=== PATIENT | female | born 1975 | race African-American/Black ===

== ENCOUNTER 2016-07-09 20:34 | Emergency (ER) | payer MEDICAID ==
[~2016-07-09] VITALS: Ht 167.6 cm; Wt 74.8 kg
[2016-07-09 21:04] LABS: Basophils # (auto) 0.2 uL; Basophils % (auto) 1.9 % (0.0-2.0); Eosinophils # (auto) 0.2 uL; Eosinophils % (auto) 1.9 % (0.0-7.0); Hematocrit 39.4 % (36.0-46.0); Hemoglobin 13.1 g/dL (12.2-16.2); Lymphocytes # (auto) 3.6 uL; Lymphocytes % (auto) 36.7 % (10.0-50.0); Mean Corpuscular Hemoglobin 27.8 pg (28.0-32.0); Mean Corpuscular Hgb Conc. 33.2 g/dL (32.0-36.0); Mean Corpuscular Volume 83.6 fL (80.0-100.0); Mean Platelet Volume 8.6 fL (7.4-10.4); Monocytes # (auto) 0.2 uL; Monocytes % (auto) 2.3 % (0.0-12.0); Neutrophils # (auto) 5.6 uL; Neutrophils % (auto) 57.2 % (37.0-80.0); Platelet Count (auto) 347 10^3/uL (140-450); Red Cell Distribution Width 13.1 % (11.6-16.0); White Blood Cell 9.8 10^3/uL (4.4-10.8)
[2016-07-09 21:27] LABS: Albumin 3.3 g/dL (3.4-5.0); Alkaline Phosphatase 97 U/L (45-117); Anion Gap 11 (5-15); Aspartate Aminotransferase 8 U/L (15-37); BUN/Creatinine Ratio 8.5; Bilirubin, Total 0.3 mg/dL (0.2-1.0); Blood Urea Nitrogen 10 mg/dL (7-18); Calcium 8.6 mg/dL (8.5-10.1); Carbon Dioxide 24 mmol/L (21-32); Chloride 101 mmol/L (98-107); GFR African American 66 mL/min; GFR Non-African American 55 mL/min; Glucose 380 mg/dL (74-106); Magnesium 2.1 mg/dL (1.6-2.6); Potassium 3.8 mmol/L (3.5-5.1); Sodium 136 mmol/L (136-145); Total Protein 7.3 g/dL (6.4-8.2)
[2016-07-10] MEDS ORDERED: INSULIN 70/30 1unit/0.01ml Susp (100units/ml) SC ONE (06:15)
[2016-07-10 07:20] VITALS: BP 108/78
== END 2016-07-10 07:21 | disposition home or self-care (01) ==
LOC: ER 20:37
DX: J20.9 Acute bronchitis, unspecified (principal); J44.9 Chronic obstructive pulmonary disease, unspecified; J45.909 Unspecified asthma, uncomplicated; E11.22 Type 2 diabetes mellitus with diabetic chronic kidney disease; N18.9 Chronic kidney disease, unspecified; F17.210 Nicotine dependence, cigarettes, uncomplicated
CPT/HCPCS: 36415; 71020; 80053; 81025; 83735; 84484; 85025; 93005

== ENCOUNTER 2016-07-15 13:55 | Emergency (ER) | payer MEDICAID ==
[~2016-07-15] VITALS: Ht 165.1 cm; Wt 73.0 kg
[2016-07-15 14:45] LABS: Basophils # (auto) 0.1 uL; Basophils % (auto) 0.8 % (0.0-2.0); Eosinophils # (auto) 0.2 uL; Eosinophils % (auto) 1.7 % (0.0-7.0); Hemoglobin 14.1 g/dL (12.2-16.2); Lymphocytes # (auto) 2.9 uL; Lymphocytes % (auto) 28.1 % (10.0-50.0); Mean Corpuscular Hemoglobin 27.7 pg (28.0-32.0); Mean Corpuscular Hgb Conc. 32.9 g/dL (32.0-36.0); Mean Platelet Volume 8.9 fL (7.4-10.4); Monocytes # (auto) 0.5 uL; Monocytes % (auto) 4.8 % (0.0-12.0); Neutrophils # (auto) 6.7 uL; Neutrophils % (auto) 64.6 % (37.0-80.0); Platelet Count (auto) 360 10^3/uL (140-450); Red Cell Distribution Width 13.3 % (11.6-16.0); White Blood Cell 10.3 10^3/uL (4.4-10.8)
[2016-07-15 15:11] LABS: Albumin 3.5 g/dL (3.4-5.0); Alkaline Phosphatase 94 U/L (45-117); Anion Gap 11 (5-15); Aspartate Aminotransferase 8 U/L (15-37); BUN/Creatinine Ratio 9.4; Bilirubin, Total 0.6 mg/dL (0.2-1.0); Blood Urea Nitrogen 10 mg/dL (7-18); Calcium 8.8 mg/dL (8.5-10.1); Carbon Dioxide 24 mmol/L (21-32); Chloride 102 mmol/L (98-107); GFR African American 74 mL/min; GFR Non-African American 61 mL/min; Glucose 385 mg/dL (74-106); Potassium 4.4 mmol/L (3.5-5.1); Sodium 137 mmol/L (136-145); Total Protein 7.7 g/dL (6.4-8.2)
[2016-07-15 15:16] LABS: Urine Bilirubin Negative (Negative); Urine Blood Negative /uL (Negative); Urine Color Yellow (Yellow); Urine Mucus FEW (None Seen); Urine Nitrite Negative (Negative); Urine RBC 2 /hpf (0 - 4); Urine Squamous Epithelial Cell FEW /hpf (<5); Urine Urobilinogen Normal (Negative)
[2016-07-15 15:19] LABS: Urine Glucose 4+ mg/dL (Normal); Urine Ketone 1+ (Negative)
[2016-07-15] MEDS ORDERED: cefTRIAXone 1GM/50ML D5W 50 ML IV ONE (19:15)
[2016-07-15] MEDS ORDERED: InsuLIN REG 1unit/0.01ml Soln (100units/ml) SC ONE (21:00)
[2016-07-15] MEDS ORDERED: SODIUM CHLORIDE 0.9% 1,000 ML IV ONE (21:00)
[2016-07-15] MEDS ORDERED: ONDANSETRON HCL 4 MG/2 ML VIAL ONE (21:30)
[2016-07-15 23:00] VITALS: BP 123/88
[2016-07-15] MEDS ORDERED: ONDANSETRON HCL 4 MG/2 ML VIAL IV ONE (23:00)
== END 2016-07-16 02:19 | disposition home or self-care (01) ==
LOC: ER 13:55
DX: E11.65 Type 2 diabetes mellitus with hyperglycemia (principal); N39.0 Urinary tract infection, site not specified; F17.210 Nicotine dependence, cigarettes, uncomplicated; E11.22 Type 2 diabetes mellitus with diabetic chronic kidney disease; N18.9 Chronic kidney disease, unspecified; J45.909 Unspecified asthma, uncomplicated
CPT/HCPCS: 36415; 71010; 80053; 81001; 81025; 82962; 83735; 84484; 85025; 85379; 93005; 96365; 96372; 96375; 99285; J0696; J1815; J2405

== ENCOUNTER 2016-08-02 17:25 | Observation (INO) | payer MEDICAID ==
[~2016-08-02] VITALS: Ht 165.1 cm; Wt 71.2 kg
[2016-08-02 19:11] LABS: Albumin 3.3 g/dL (3.4-5.0); Calcium 8.1 mg/dL (8.5-10.1); Potassium 3.9 mmol/L (3.5-5.1)
[2016-08-02 19:13] LABS: BUN/Creatinine Ratio 10.8
[2016-08-02 19:16] LABS: Bilirubin, Total 0.2 mg/dL (0.2-1.0)
[2016-08-02 19:30] LABS: Basophils # (auto) 0.1 uL; Basophils % (auto) 1.1 % (0.0-2.0); Eosinophils # (auto) 0.2 uL; Hematocrit 39.9 % (36.0-46.0); Hemoglobin 13.2 g/dL (12.2-16.2); Lymphocytes # (auto) 3.2 uL; Lymphocytes % (auto) 36.8 % (10.0-50.0); Mean Corpuscular Hemoglobin 27.6 pg (28.0-32.0); Mean Corpuscular Volume 83.7 fL (80.0-100.0); Mean Platelet Volume 9.3 fL (7.4-10.4); Monocytes # (auto) 0.8 uL; Monocytes % (auto) 8.6 % (0.0-12.0); Neutrophils # (auto) 4.5 uL; Neutrophils % (auto) 51.5 % (37.0-80.0); Platelet Count (auto) 372 10^3/uL (140-450); Red Cell Distribution Width 13.3 % (11.6-16.0); White Blood Cell 8.8 10^3/uL (4.4-10.8)
[2016-08-03 02:51] VITALS: BP 118/82
== END 2016-08-03 06:14 | disposition home or self-care (01) | DRG 111 ==
LOC: ER 17:31 → OVERFLOW 08-03 02:53 → ER 08-03 06:14
PROVIDERS: ADMIT Emergency Medicine; ATTEND Emergency Medicine
DX: R42 Dizziness and giddiness (principal); N19 Unspecified kidney failure; F32.9 Major depressive disorder, single episode, unspecified; F41.9 Anxiety disorder, unspecified; J45.909 Unspecified asthma, uncomplicated; E11.9 Type 2 diabetes mellitus without complications; F17.210 Nicotine dependence, cigarettes, uncomplicated
CPT/HCPCS: 36415; 80053; 82010; 82962; 84484; 85025; 93005; 99285; G0378

== ENCOUNTER 2016-10-04 20:50 | Emergency (ER) | payer MEDICAID ==
[~2016-10-04] VITALS: Ht 162.6 cm; Wt 72.6 kg
[2016-10-04 21:22] VITALS: BP 137/91
[2016-10-04] MEDS ORDERED: IBUPROFEN 600 MG TAB PO ONE (21:45)
== END 2016-10-04 22:12 | disposition home or self-care (01) ==
LOC: ER 20:57
DX: S00.83XA Contusion of other part of head, initial encounter (principal); J45.909 Unspecified asthma, uncomplicated; E11.22 Type 2 diabetes mellitus with diabetic chronic kidney disease; N18.9 Chronic kidney disease, unspecified; F17.210 Nicotine dependence, cigarettes, uncomplicated; Z98.51 Tubal ligation status; Y09 Assault by unspecified means; Y93.89 Activity, other specified; Y99.8 Other external cause status; Y92.89 Other specified places as the place of occurrence of the external cause
CPT/HCPCS: 82962

== ENCOUNTER 2016-10-05 02:54 | Emergency (ER) | payer MEDICAID ==
[~2016-10-05] VITALS: Ht 167.6 cm; Wt 68.0 kg
[2016-10-05 04:02] LABS: Basophils # (auto) 0.1 uL; Eosinophils # (auto) 0.2 uL; Eosinophils % (auto) 1.9 % (0.0-7.0); Hematocrit 37.5 % (36.0-46.0); Hemoglobin 12.6 g/dL (12.2-16.2); Lymphocytes # (auto) 4.5 uL; Lymphocytes % (auto) 37.4 % (10.0-50.0); Mean Corpuscular Hemoglobin 28.3 pg (28.0-32.0); Mean Corpuscular Hgb Conc. 33.5 g/dL (32.0-36.0); Mean Corpuscular Volume 84.4 fL (80.0-100.0); Mean Platelet Volume 9.1 fL (7.4-10.4); Monocytes # (auto) 1.1 uL; Monocytes % (auto) 8.7 % (0.0-12.0); Neutrophils # (auto) 6.2 uL; Platelet Count (auto) 378 10^3/uL (140-450); Red Cell Distribution Width 13.5 % (11.6-16.0); White Blood Cell 12.1 10^3/uL (4.4-10.8)
[2016-10-05 04:17] LABS: Albumin 3.1 g/dL (3.4-5.0); BUN/Creatinine Ratio 15.7; Calcium 8.6 mg/dL (8.5-10.1); Potassium 3.6 mmol/L (3.5-5.1)
[2016-10-05 04:19] LABS: Urine Bilirubin Negative (Negative); Urine Color Yellow (Yellow); Urine Ketone Negative (Negative); Urine Nitrite Negative (Negative); Urine RBC 866 /hpf (0 - 4); Urine Squamous Epithelial Cell FEW /hpf (<5); Urine Urobilinogen Normal (Negative); Urine pH 5.5 (5.0-8.0)
[2016-10-05 04:20] LABS: Bilirubin, Total 0.4 mg/dL (0.2-1.0); Total Protein 7.3 g/dL (6.4-8.2)
[2016-10-05 04:20] LABS: Urine Blood 3+ /uL (Negative); Urine Glucose 4+ mg/dL (Normal)
[2016-10-05] MEDS ORDERED: SODIUM CHLORIDE 0.9% 1,000 ML IV ONE (06:15)
[2016-10-05] MEDS ORDERED: InsuLIN REG 1unit/0.01ml Soln (100units/ml) IV ONE (06:15)
[2016-10-05 07:21] VITALS: BP 133/82
== END 2016-10-05 07:48 | disposition home or self-care (01) ==
LOC: ER 02:54
DX: S00.83XA Contusion of other part of head, initial encounter (principal); E11.65 Type 2 diabetes mellitus with hyperglycemia; N39.0 Urinary tract infection, site not specified; F17.210 Nicotine dependence, cigarettes, uncomplicated; F12.10 Cannabis abuse, uncomplicated; F15.10 Other stimulant abuse, uncomplicated; J45.909 Unspecified asthma, uncomplicated; N18.9 Chronic kidney disease, unspecified; X58.XXXA Exposure to other specified factors, initial encounter; Y93.89 Activity, other specified; Y99.8 Other external cause status; Y92.89 Other specified places as the place of occurrence of the external cause
CPT/HCPCS: 36415; 70140; 80053; 80307; 81001; 81025; 82962; 85025; 96361; 96374; 99285; J7030

== ENCOUNTER 2016-12-15 14:05 | Emergency (ER) | payer MEDICAID ==
[~2016-12-15] VITALS: Ht 165.1 cm; Wt 72.6 kg
[2016-12-15 15:09] LABS: Basophils # (auto) 0.1 uL; Basophils % (auto) 1.4 % (0.0-2.0); CONDITION Y; Eosinophils # (auto) 0.2 uL; Eosinophils % (auto) 2.3 % (0.0-7.0); Hematocrit 36.8 % (36.0-46.0); Hemoglobin 12.2 g/dL (12.2-16.2); Lymphocytes # (auto) 2.2 uL; Lymphocytes % (auto) 27.4 % (10.0-50.0); Mean Corpuscular Hemoglobin 27.8 pg (28.0-32.0); Mean Corpuscular Hgb Conc. 33.2 g/dL (32.0-36.0); Mean Corpuscular Volume 83.8 fL (80.0-100.0); Mean Platelet Volume 9.3 fL (7.4-10.4); Monocytes # (auto) 0.6 uL; Monocytes % (auto) 6.9 % (0.0-12.0); Platelet Count (auto) 320 10^3/uL (140-450); Red Cell Distribution Width 13.8 % (11.6-16.0); White Blood Cell 8.1 10^3/uL (4.4-10.8)
[2016-12-15 15:20] LABS: Albumin 3.2 g/dL (3.4-5.0); BUN/Creatinine Ratio 7.1; Bilirubin, Total 0.6 mg/dL (0.2-1.0); Calcium 8.5 mg/dL (8.5-10.1); Potassium 4.4 mmol/L (3.5-5.1); Total Protein 7.3 g/dL (6.4-8.2)
[2016-12-15] MEDS ORDERED: SODIUM CHLORIDE 0.9% 1,000 ML IV ONE ×2 (17:10)
[2016-12-15] MEDS ORDERED: InsuLIN REG 1unit/0.01ml Soln (100units/ml) IV ONE (17:15)
[2016-12-15 20:30] VITALS: BP 116/68
[2016-12-15 21:17] LABS: Urine Bilirubin Negative (Negative); Urine Blood Negative /uL (Negative); Urine Color Yellow (Yellow); Urine Glucose 4+ mg/dL (Normal); Urine Ketone Negative (Negative); Urine Nitrite Negative (Negative); Urine RBC 3 /hpf (0 - 4); Urine Squamous Epithelial Cell FEW /hpf (<5)
== END 2016-12-15 21:42 | disposition home or self-care (01) ==
LOC: ER 14:08
DX: N39.0 Urinary tract infection, site not specified (principal); E11.65 Type 2 diabetes mellitus with hyperglycemia; J45.909 Unspecified asthma, uncomplicated; N18.9 Chronic kidney disease, unspecified; E11.22 Type 2 diabetes mellitus with diabetic chronic kidney disease; H53.8 Other visual disturbances; H57.11 Ocular pain, right eye; R53.1 Weakness; Z98.51 Tubal ligation status; F17.210 Nicotine dependence, cigarettes, uncomplicated; F12.10 Cannabis abuse, uncomplicated; F15.10 Other stimulant abuse, uncomplicated
CPT/HCPCS: 36415; 80053; 81001; 81025; 82962; 85025; 96361; 96374; 99284; J1815; J7030

== ENCOUNTER 2016-12-17 00:23 | Emergency (ER) | payer MEDICAID ==
[~2016-12-17] VITALS: Ht 165.1 cm; Wt 72.6 kg
[2016-12-17 01:16] LABS: Urine Bilirubin Negative (Negative); Urine Blood 3+ /uL (Negative); Urine Color Yellow (Yellow); Urine Glucose 4+ mg/dL (Normal); Urine Ketone 1+ (Negative); Urine Mucus FEW (None Seen); Urine Nitrite Negative (Negative); Urine RBC 12 /hpf (0 - 4); Urine Squamous Epithelial Cell FEW /hpf (<5); Urine pH 5.5 (5.0-8.0)
[2016-12-17] MEDS ORDERED: SODIUM CHLORIDE 0.9% 1,000 ML IV ONE (01:30)
[2016-12-17 01:35] LABS: Basophils # (auto) 0.4 uL; Basophils % (auto) 4.3 % (0.0-2.0); DEFINITIVE SEE PRINTOUT; Eosinophils # (auto) 0.1 uL; Eosinophils % (auto) 1.6 % (0.0-7.0); Hematocrit 35.7 % (36.0-46.0); Hemoglobin 11.8 g/dL (12.2-16.2); Lymphocytes # (auto) 3.2 uL; Lymphocytes % (auto) 34.3 % (10.0-50.0); Mean Corpuscular Hemoglobin 27.6 pg (28.0-32.0); Mean Corpuscular Hgb Conc. 32.9 g/dL (32.0-36.0); Mean Corpuscular Volume 83.9 fL (80.0-100.0); Mean Platelet Volume 8.4 fL (7.4-10.4); Monocytes # (auto) 0.6 uL; Monocytes % (auto) 6.6 % (0.0-12.0); Neutrophils # (auto) 5.1 uL; Neutrophils % (auto) 53.2 % (37.0-80.0); Platelet Count (auto) 307 10^3/uL (140-450); Red Cell Distribution Width 12.7 % (11.6-16.0); SUSPECT SEE PRINTOUT; White Blood Cell 9.4 10^3/uL (4.4-10.8)
[2016-12-17 02:14] LABS: Albumin 3.3 g/dL (3.4-5.0); BUN/Creatinine Ratio 11.3; Calcium 8.3 mg/dL (8.5-10.1); Potassium 3.9 mmol/L (3.5-5.1)
[2016-12-17 02:17] LABS: Bilirubin, Total 0.3 mg/dL (0.2-1.0); Total Protein 7.5 g/dL (6.4-8.2)
[2016-12-17 05:35] VITALS: BP 112/67
== END 2016-12-17 05:46 | disposition home or self-care (01) ==
LOC: ER 00:25
DX: E11.65 Type 2 diabetes mellitus with hyperglycemia (principal); F15.10 Other stimulant abuse, uncomplicated; Z91.19 Patient's noncompliance with other medical treatment and regimen; J45.909 Unspecified asthma, uncomplicated; E11.22 Type 2 diabetes mellitus with diabetic chronic kidney disease; N18.9 Chronic kidney disease, unspecified; F17.210 Nicotine dependence, cigarettes, uncomplicated; F12.10 Cannabis abuse, uncomplicated; Z87.440 Personal history of urinary (tract) infections; Z98.51 Tubal ligation status
CPT/HCPCS: 36415; 80053; 80307; 81001; 82962; 85025; 94761; 99284; J7030

== ENCOUNTER 2016-12-27 01:06 | Emergency (ER) | payer MEDICAID ==
[~2016-12-27] VITALS: Ht 165.1 cm; Wt 72.6 kg
[2016-12-27 01:43] VITALS: BP 121/77
[2016-12-27 02:12] LABS: Basophils # (auto) 0.1 uL; Basophils % (auto) 0.8 % (0.0-2.0); CONDITION Y; Eosinophils # (auto) 0.3 uL; Eosinophils % (auto) 2.5 % (0.0-7.0); Hematocrit 41.6 % (36.0-46.0); Hemoglobin 13.4 g/dL (12.2-16.2); Lymphocytes # (auto) 4.5 uL; Lymphocytes % (auto) 41.8 % (10.0-50.0); Mean Corpuscular Hemoglobin 27.2 pg (28.0-32.0); Mean Corpuscular Hgb Conc. 32.3 g/dL (32.0-36.0); Mean Corpuscular Volume 84.3 fL (80.0-100.0); Mean Platelet Volume 8.6 fL (7.4-10.4); Neutrophils # (auto) 4.9 uL; Neutrophils % (auto) 45.9 % (37.0-80.0); Platelet Count (auto) 415 10^3/uL (140-450); Red Cell Distribution Width 13.9 % (11.6-16.0); White Blood Cell 10.7 10^3/uL (4.4-10.8)
[2016-12-27 02:33] LABS: Albumin 3.6 g/dL (3.4-5.0); Calcium 8.6 mg/dL (8.5-10.1)
[2016-12-27 02:36] LABS: Bilirubin, Total 0.4 mg/dL (0.2-1.0); Total Protein 8.1 g/dL (6.4-8.2)
== END 2016-12-27 07:22 | disposition left against medical advice (07) ==
LOC: ER 01:10
DX: R73.9 Hyperglycemia, unspecified (principal); Z53.21 Procedure and treatment not carried out due to patient leaving prior to being seen by health care provider
CPT/HCPCS: 36415; 80053; 85025

== ENCOUNTER 2017-01-11 02:33 | Emergency (ER) | payer MEDICAID ==
[~2017-01-11] VITALS: Ht 165.1 cm; Wt 74.8 kg
[2017-01-11 03:50] LABS: Basophils # (auto) 0 uL; Basophils % (auto) 0.3 % (0.0-2.0); CONDITION Y; Eosinophils # (auto) 0.3 uL; Eosinophils % (auto) 2.7 % (0.0-7.0); Hemoglobin 13.1 g/dL (12.2-16.2); Lymphocytes # (auto) 4.7 uL; Lymphocytes % (auto) 39.8 % (10.0-50.0); Mean Corpuscular Hemoglobin 27.6 pg (28.0-32.0); Mean Corpuscular Hgb Conc. 32.7 g/dL (32.0-36.0); Mean Corpuscular Volume 84.4 fL (80.0-100.0); Monocytes # (auto) 0.8 uL; Neutrophils # (auto) 5.9 uL; Neutrophils % (auto) 50.2 % (37.0-80.0); Platelet Count (auto) 358 10^3/uL (140-450); Red Cell Distribution Width 14.1 % (11.6-16.0); White Blood Cell 11.8 10^3/uL (4.4-10.8)
[2017-01-11 04:04] LABS: INR 0.93 (0.9-1.15); Partial Thromboplastin Time 23.2 sec (22.64-33.71); Prothrombin Time 10.1 sec (9.37-12.3)
[2017-01-11 04:22] LABS: Albumin 3.4 g/dL (3.4-5.0); Alkaline Phosphatase 100 U/L (45-117); Anion Gap 10 (5-15); Aspartate Aminotransferase 6 U/L (15-37); Bilirubin, Total 0.3 mg/dL (0.2-1.0); Blood Urea Nitrogen 7 mg/dL (7-18); Calcium 8.8 mg/dL (8.5-10.1); Carbon Dioxide 22 mmol/L (21-32); Chloride 104 mmol/L (98-107); GFR African American 92 mL/min; GFR Non-African American 76 mL/min; Glucose 335 mg/dL (74-106); Magnesium 2.2 mg/dL (1.6-2.6); Sodium 136 mmol/L (136-145); Total Protein 7.8 g/dL (6.4-8.2)
[2017-01-11] MEDS ORDERED: metFORMIN HYDROCHLORIDE 500 MG TAB PO ONE (07:30)
[2017-01-11 07:38] VITALS: BP 101/73
== END 2017-01-11 08:05 | disposition home or self-care (01) ==
LOC: ER 02:33
DX: E11.22 Type 2 diabetes mellitus with diabetic chronic kidney disease (principal); N18.9 Chronic kidney disease, unspecified; E11.65 Type 2 diabetes mellitus with hyperglycemia; J45.909 Unspecified asthma, uncomplicated; F17.210 Nicotine dependence, cigarettes, uncomplicated; F12.10 Cannabis abuse, uncomplicated; F15.10 Other stimulant abuse, uncomplicated; Z79.4 Long term (current) use of insulin; Z98.51 Tubal ligation status
CPT/HCPCS: 36415; 80053; 82962; 83735; 84484; 85025; 85610; 85730

== ENCOUNTER 2021-06-23 18:39 | Emergency (ER) | payer MEDICAID ==
[~2021-06-23] VITALS: Ht 162.6 cm; Wt 66.7 kg
[2021-06-23] MEDS ORDERED: KETOROLAC TROMETH 30 MG/ML 1ML VIAL IM ONE (19:45)
[2021-06-25] MEDS ORDERED: IBUPROFEN 800 MG TAB PO ONE (19:30)
[2021-06-27 06:16] VITALS: BP 135/78
== END 2021-06-23 23:44 | disposition home or self-care (01) ==
LOC: ER 18:41
DX: S96.912A Strain of unspecified muscle and tendon at ankle and foot level, left foot, initial encounter (principal); X58.XXXA Exposure to other specified factors, initial encounter; Y93.01 Activity, walking, marching and hiking; Y92.89 Other specified places as the place of occurrence of the external cause; Y99.8 Other external cause status
CPT/HCPCS: 73610; 96372; 99283; J1885

== ENCOUNTER 2021-06-27 09:13 | Emergency (ER) | payer MEDICAID ==
[~2021-06-27] VITALS: Ht 162.6 cm; Wt 68.0 kg
[2021-06-27 10:34] LABS: Basophils # (auto) 0.1 10 ^3/uL (0-0.2); Eosinophils # (auto) 0.1 10 ^3/uL (0-0.8); Eosinophils % (auto) 0.6 % (0.0-7.0); Monocytes % (auto) 9.4 % (0.0-12.0); Nucleated Red Blood Cells % 0.1 %
[2021-06-27 10:37] LABS: Basophils % (auto) 1.2 % (0.0-2.0); Hematocrit 32.1 % (36.0-46.0); Lymphocytes # (auto) 2.1 10 ^3/uL (0.4-5.4); Mean Corpuscular Hemoglobin 26.7 pg (28.0-32.0); Mean Corpuscular Hgb Conc. 31.2 g/dL (32.0-36.0); Mean Corpuscular Volume 85.6 fL (80.0-100.0); Neutrophils # (auto) 6.9 10 ^3/uL (1.6-8.6); Neutrophils % (auto) 67.8 % (37.0-80.0); Red Blood Cells 3.75 10^6/uL (4.0-5.20); Red Cell Distribution Width 14.8 % (11.8-14.3); White Blood Cell 10.2 10^3/uL (4.4-10.8)
[2021-06-27 10:44] LABS: Potassium 3.8 mmol/L (3.5-5.1)
[2021-06-27 10:53] LABS: Albumin 2.5 g/dL (3.4-5.0); BUN/Creatinine Ratio 10.7; Bilirubin, Total 0.2 mg/dL (0.2-1.0); Calcium 8.4 mg/dL (8.5-10.1); Total Protein 7.4 g/dL (6.4-8.2)
[2021-06-27] MEDS ORDERED: SODIUM CHLORIDE 0.9% 1,000 ML IV ONE ×2 (11:45)
[2021-06-27] MEDS ORDERED: InsuLIN REG 1unit/0.01ml Soln (100units/ml) IV ONE (11:45)
[2021-06-27] MEDS ORDERED: cefTRIAXone 1GM/50ML D5W 50 ML IV ONE (11:45)
[2021-06-27] MEDS ORDERED: TEMAZEPAM 15 MG CAP PO PRN (21:15)
[2021-06-27] MEDS ORDERED: cloNIDine HCL 0.1 MG TAB PO PRN (21:15)
[2021-06-27] MEDS ORDERED: SODIUM CHLORIDE 0.9% 1,000 ML IV SCH (21:15)
[2021-06-27] MEDS ORDERED: DEXTROSE (50%) 50ML SYRG IV PRN (21:15)
[2021-06-27] MEDS ORDERED: ACETAMINOPHEN 325 MG TAB PO PRN (21:15)
[2021-06-27] MEDS ORDERED: HYDROcodone-ACET 5/325MG TAB PO PRN (21:15)
[2021-06-27] MEDS ORDERED: ONDANSETRON HCL 4 MG/2 ML VIAL IV PRN (21:15)
[2021-06-27] MEDS: InsuLIN REG 1unit/0.01ml Soln (100units/ml) SC SCH ×2 (21:50→23:54)
[2021-06-27 23:10] LABS: Urine Bacteria NONE SEEN /hpf (None Seen); Urine Blood Negative /uL (Negative); Urine Specific Gravity 1.024 (1.001-1.035); Urine WBC 7 /hpf (0 - 5)
[2021-06-28] MEDS ORDERED: ACCU-CHEK COMFORT CURVE STRIP VI SCH
[2021-06-28 02:40] VITALS: BP 105/63
[2021-06-28] MEDS ORDERED: cefTRIAXone 1GM/50ML D5W 50 ML IV SCH (09:00)
[2021-06-28] MEDS ORDERED: PANTOPRAZOLE 40 MG TAB PO SCH (10:00)
[2021-06-28] MEDS ORDERED: ENOXAPARIN SOD 40 MG/0.4 ML SYRINGE SC SCH (10:00)
== END 2021-06-28 02:36 | disposition short-term general hospital (02) ==
LOC: ER 09:13 → CENTRAL 21:08 → UNDOADMIN 21:08 → CENTRAL 06-28 01:42 → OVERFLOW 06-28 01:42 → UNDODISIN 06-28 02:36
DX: L03.116 Cellulitis of left lower limb (principal); E11.22 Type 2 diabetes mellitus with diabetic chronic kidney disease; E11.65 Type 2 diabetes mellitus with hyperglycemia; F17.210 Nicotine dependence, cigarettes, uncomplicated; N18.9 Chronic kidney disease, unspecified; J45.909 Unspecified asthma, uncomplicated; F12.10 Cannabis abuse, uncomplicated; F15.10 Other stimulant abuse, uncomplicated; Z59.00 Homelessness unspecified; Z20.822 Contact with and (suspected) exposure to COVID-19; Z98.51 Tubal ligation status
CPT/HCPCS: 36415; 71045; 73700; 80053; 81001; 82962; 83036; 83605; 84484; 85025; 87040; 87426; 96361; 96365; 96372; 96375; 99285; J0696; J1815; G0378

== ENCOUNTER 2023-03-29 02:32 | Emergency (ER) | payer MEDICAID ==
[~2023-03-29] VITALS: Ht 165.1 cm; Wt 94.4 kg
[2023-03-29 05:26] LABS: Alanine Aminotransferase 11 U/L (7-40); Albumin 3.9 g/dL (3.2-4.8); Alkaline Phosphatase 109 U/L (46-116); Aspartate Aminotransferase 10 U/L (13-40); BUN/Creatinine Ratio 16.3 (10.0-20.0); Blood Alcohol 4.7 mg/dL (<10); Blood Urea Nitrogen 17 mg/dL (9-23); Calcium 9.1 mg/dL (8.7-10.4); Chloride 101 mmol/L (98-107); Glucose 392 mg/dL (74-106); Lipase 51 U/L (12-53); Magnesium 1.7 mg/dL (1.6-2.6); Potassium 3.9 mmol/L (3.5-5.1); Sodium 132 mmol/L (136-145)
[2023-03-29 05:27] LABS: Bilirubin, Total 0.3 mg/dL (0.2-1.0); Total Protein 6.9 g/dL (5.7-8.2)
[2023-03-29 05:48] LABS: Anion Gap 12 (5-15); Carbon Dioxide 19 mmol/L (20-30)
[2023-03-29] MEDS ORDERED: InsuLIN REG 1unit/0.01ml Soln (100units/ml) IV ONE (06:45)
[2023-03-29] MEDS ORDERED: LACTATED RINGER'S 1,000 ML IV ONE (06:45)
[2023-03-29 07:56] VITALS: BP 137/86; PULSE 91; RESP 20; TEMP 98.2; O2SAT 99
[2023-03-29 07:56] LABS: Basophils # (auto) 0.1 10 ^3/uL (0-0.2); Basophils % (auto) 0.7 % (0.0-2.0); Eosinophils # (auto) 0.1 10 ^3/uL (0-0.8); Eosinophils % (auto) 1.1 % (0.0-7.0); Hematocrit 41.3 % (36.0-46.0); Hemoglobin 13.5 g/dL (12.2-16.2); Lymphocytes # (auto) 3.7 10 ^3/uL (0.4-5.4); Lymphocytes % (auto) 38.8 % (10.0-50.0); Mean Corpuscular Hemoglobin 28.2 pg (28.0-32.0); Mean Corpuscular Hgb Conc. 32.7 g/dL (32.0-36.0); Monocytes # (auto) 0.8 10 ^3/uL (0-1.3); Monocytes % (auto) 8.6 % (0.0-12.0); Neutrophils # (auto) 4.9 10 ^3/uL (1.6-8.6); Neutrophils % (auto) 50.8 % (37.0-80.0); Nucleated Red Blood Cells % 0.2 %; Red Blood Cells 4.81 10^6/uL (4.0-5.20); Red Cell Distribution Width 14.4 % (11.8-14.3); White Blood Cell 9.6 10^3/uL (4.4-10.8)
[2023-03-30] MEDS ORDERED: PHEN-922 PO (00:43)
[2023-03-30] MEDS ORDERED: NITR-87 PO (00:43)
== END 2023-03-29 10:30 | disposition home or self-care (01) ==
LOC: ER 02:32 → EDBD 02:32 → ER 10:30
DX: E11.65 Type 2 diabetes mellitus with hyperglycemia (principal); E86.0 Dehydration; F17.210 Nicotine dependence, cigarettes, uncomplicated; F12.10 Cannabis abuse, uncomplicated; Z59.00 Homelessness unspecified
CPT/HCPCS: 36415; 71045; 80053; 80320; 82010; 82962; 83690; 83735; 83930; 84484; 85025; 96361; 96374; 99284; J1815

== ENCOUNTER 2023-03-29 19:57 | Emergency (ER) | payer MEDICAID ==
[~2023-03-29] VITALS: Ht 165.1 cm; Wt 94.0 kg
[2023-03-30 00:30] LABS: Urine Bacteria MANY /hpf (None Seen); Urine Blood 2+ /uL (Negative); Urine Clarity Clear (Clear); Urine Color Colorless (Yellow); Urine Protein, UAD Negative (Negative); Urine Specific Gravity 1.031 (1.001-1.035); Urine Urobilinogen Normal (Negative); Urine WBC 19 /hpf (0 - 5); Urine WBC Clumps PRESENT /hpf (None Seen)
[2023-03-30] MEDS ORDERED: PHEN-922 PO (00:43)
[2023-03-30] MEDS ORDERED: NITR-87 PO (00:43)
[2023-03-30 05:55] VITALS: BP 115/70; PULSE 85; RESP 18; TEMP 98.8; O2SAT 98
== END 2023-03-30 05:57 | disposition home or self-care (01) ==
LOC: ER 19:57
DX: N39.0 Urinary tract infection, site not specified (principal); N39.498 Other specified urinary incontinence; E11.9 Type 2 diabetes mellitus without complications; F32.9 Major depressive disorder, single episode, unspecified; N18.9 Chronic kidney disease, unspecified; J45.909 Unspecified asthma, uncomplicated; F17.210 Nicotine dependence, cigarettes, uncomplicated; F15.90 Other stimulant use, unspecified, uncomplicated; Z86.2 Personal history of diseases of the blood and blood-forming organs and certain disorders involving the immune mechanism; Z98.890 Other specified postprocedural states
CPT/HCPCS: 81001; 81025

== ENCOUNTER 2024-11-17 14:31 | Inpatient (IN) | payer MEDICAID ==
[~2024-11-17] VITALS: Ht 165.1 cm; Wt 82.1 kg
[~2024-11-17 14:31] MED LIST: NITR-87 PO; PHEN-922 PO
--- NOTE | 2024-11-17 16:18 | ED.PDOC ---
History of Present Illness HPI Comments 48-year-old female presents to the ER with a prior medical history of anemia, asthma, diabetes, CKF, UTI, depression: Surgical history BTL and a chief complaint lower extremity. Patient does have peripheral neuropathy and has been walking a lot for which she has had ulcers on both of her feet. Patient went to [facility] in her with the addressed in debrided the wound last week. Patient notes that she does not check her blood sugar and has a polyuria. Denies chills, fever, N/V/D, SOB, CP. No other associated symptoms, modifiers, recent injuries or sick contacts present at this time. Chief Complaint: Wound Check Time Seen by MD: 16:15 Primary Care Provider: NONE Reviewed Notes: Nurses Notes, Medications, Allergies Allergies: Coded Allergies: NO KNOWN ALLERGIES (Unverified , 06/26/12) Home Meds Active Scripts Phenazopyridine HCl (Phenazopyridine Hydrochlo) 200 Mg Tab, 1 TAB PO TID for 3 Days, #9 TAB Prov:JUANITA SALAZAR Q TOOTH CLERK 03/30/23 Nitrofurantoin Monohydrate Mac (Macrobid) 100 Mg Cap, 1 TAB PO BID for 10 Days, #20 CAP Prov:SALAZAR,NORALDA Q TOOTH CLERK 03/30/23 Information Source: Patient Mode of Arrival: Ambulatory Severity: Moderate Timing: Weeks Duration: Since onset Prehospital treatment: None Past Medical History PAST MEDICAL HISTORY: Anemia, Asthma, CKF, Depression, DM, UTI'S Surgical History: BTL HOTEL DIRECTOR History: Denies all HOTEL DIRECTOR Hx Family History Family History: Reviewed,noncontributory to illness, Unknown Social History Smoker: Unknown Alcohol: Unknown Drugs: Unknown Lives In: Homeless Constitutional: denies: chills, diaphoresis, fatigue, fever, malaise, sweats, weakness, others EENTM: denies: blurred vision, double vision, ear bleeding, ear discharge, ear drainage, ear pain, ear ringing, eye pain, eye redness, hearing loss, mouth pain, mouth swelling, nasal discharge, nose bleeding, nose congestion, nose pain, photophobia, tearing, throat pain, throat swelling, voice changes, others Respiratory: denies: cough, hemoptysis, orthopnea, SOB at rest, shortness of breath, SOB with excertion, stridor, wheezing, others Cardiovascular: denies: chest pain, dizzy spells, diaphoresis, Dyspnea on exertion, edema, irregular heart beat, left arm pain, lightheadedness, palpitations, PND, syncope, others Gastrointestinal: denies: abdomen distended, abdominal pain, blood streaked bowels, constipated, diarrhea, dysphagia, difficulty swallowing, hematemesis, melena, nausea, poor appetite, poor fluid intake, rectal bleeding, rectal pain, vomiting, others Genitourinary: denies: abnormal vagina bleeding, burning, dyspareunia, dysuria, flank pain, frequency, hematuria, incontinence, pain, , vagina discharge, urgency, others Neurological: denies: dizziness, fainting, headache, left sided numbness, left sided weakness, numbness, paresthesia, pre-existing deficit, right sided numbness, right sided weakness, seizure, speech problems, tingling, tremors, weakness, others Musculoskeletal: denies: back pain, gout, joint pain, joint swelling, muscle pain, muscle stiffness, neck pain, others Integumetry: reports: others (Diabetic ulcer); denies: bruises, change in color, change in hair/nails, dryness, laceration, lesions, lumps, rash, wounds Allergic/Immunocompromised: denies: Difficulty Healing, Frequent Infections, Hives, Itching, others Hematologic/Lymphatic: denies: anemia, blood clots, easy bleeding, easy bruising, swollen glands, others Endocrine: denies: excessive hunger, excessive sweating, excessive thirst, excessive urination, flushing, intolerance to cold, intolerance to heat, unexplained weight gain, unexplained weight loss, others Psychiatric: denies: anxiety, bipolar disorder, depression, hopeless, panic disorder, schizophrenia, sleepless, suicidal, others All Other Systems: Reviewed and Negative Physical Exam Exam Comments Bilateral plantar full-thickness medical ulcer with no redness/pus General Appearance: No Apparent Distress, Normal HEENT: Normal ENT Inspection, Pharynx Normal, TMs Normal Neck: Full Range of Motion, Non-Tender, Normal, Normal Inspection Respiratory: Chest Non-Tender, Lungs Clear, No Accessory Muscle Use, No Respiratory Distress, Normal Breath Sounds Cardiovascular: No Edema, No JVD, No Murmur, No Gallop, Normal Peripheral Pulses, Regular Rate/Rhythm Breast Exam: Deferred Gastrointestinal: No Organomegaly, Non Tender, No Pulsatile Mass, Normal Bowel Sounds, Soft Genitalia: Deferred Pelvic: Deferred Rectal: Deferred Extremities: No calf tenderness, Normal capillary refill, Normal inspection, Normal range of motion, Non-tender, No pedal edema Musculoskeletal : Apperance: Normal Neurologic: Alert, supervisor title II-XII nml as Tested, No Motor Deficits, Normal Affect, Normal Mood, No Sensory Deficits Cerebellar Function: Normal Reflexes: Normal Skin: Dry, Normal Color, Warm Lymphatic: No Adenopathy Was a procedure done? Was a procedure done?: No Differential Dx Considerations may include: osteomyelitis, cellulitis, diabetic foot ulcers, necrotizing fasciitis, DKA, dehydration, sepsis X-Ray, Labs, Meds, VS Vital Signs Date Time Temp Pulse Resp B/P (MAP) Pulse Ox O2 Delivery O2 Flow Rate FiO2 11/17/24 16:16 98.0 95 16 99/62 (74) 100 98.0 Lab Test 11/17/24 16:28 11/17/24 16:03 Range/Units White Blood Count 9.0 4.4-10.8 10^3/uL Red Blood Count 3.74 L 4.0-5.20 10^6/uL Hemoglobin 10.4 L 12.2-16.2 g/dL Hematocrit 31.5 L 36.0-46.0 % Mean Corpuscular Volume 84.3 80.0-100.0 fL Mean Corpuscular Hemoglobin 27.9 L 28.0-32.0 pg Mean Corpuscular Hemoglobin Concent 33.1 32.0-36.0 g/dL Red Cell Distribution Width 13.2 11.8-14.3 % Platelet Count 646 H 140-450 10^3/uL Mean Platelet Volume 7.3 6.9-10.8 fL Neutrophils (%) (Auto) 58.7 37.0-80.0 % Lymphocytes (%) (Auto) 31.3 10.0-50.0 % Monocytes (%) (Auto) 7.6 0.0-12.0 % Eosinophils (%) (Auto) 1.6 0.0-7.0 % Basophils (%) (Auto) 0.8 0.0-2.0 % Neutrophils # (Auto) 5.3 1.6-8.6 10 ^3/uL Lymphocytes # (Auto) 2.8 0.4-5.4 10 ^3/uL Monocytes # (Auto) 0.7 0-1.3 10 ^3/uL Eosinophils # (Auto) 0.1 0-0.8 10 ^3/uL Basophils # (Auto) 0.1 0-0.2 10 ^3/uL Nucleated Red Blood Cells 0.1 % Sodium Level 132 L 136-145 mmol/L Potassium Level 4.7 3.5-5.1 mmol/L Chloride Level 97 L 98-107 mmol/L Carbon Dioxide Level 27 20-31 mmol/L Anion Gap 8 5-15 Blood Urea Nitrogen 26 H 9-23 mg/dL Creatinine 1.40 H 0.550-1.02 mg/dL Glomerular Filtration Rate Calc 47 >90 mL/min BUN/Creatinine Ratio 18.6 10.0-20.0 Serum Glucose 437 *H 74-106 mg/dL Calcium Level 9.8 8.7-10.4 mg/dL POC Glucose 409 *H 70-106 mg/dl Time of 1ST Reevaluation: 16:45 Reevaluation 1ST: Unchanged Patient Education/Counseling: Diagnosis, Treatment, Prognosis Family Education/Counseling: No Family Present SEPSIS Sepsis Screen Physician Orders Accucheck (11/17/24 17:00) Accucheck (11/17/24 18:00) Accucheck (11/17/24 19:00) Accucheck (11/17/24 20:00) Accucheck (11/17/24 21:00) Accucheck (11/17/24 22:00) Accucheck (11/17/24 23:00) R Foot 2 View Xray (11/17/24 16:08) L Foot 2 View Xray (11/17/24 16:08) Sodium Chloride 0.9% (11/17/24 16:15) Vital Signs Date Time Temp Pulse Resp B/P (MAP) Pulse Ox O2 Delivery O2 Flow Rate FiO2 11/17/24 16:16 98.0 95 16 99/62 (74) 100 98.0 Laboratory Tests Test 11/17/24 16:28 White Blood Count 9.0 10^3/uL (4.4-10.8) Departure 1 Departure Time of Disposition: 18:10 Impression: Primary Impression: Osteomyelitis Qualified Codes: M86.9 - Osteomyelitis, unspecified Additional Impressions: Uncontrolled diabetes mellitus Qualified Codes: E10.65 - Type 1 diabetes mellitus with hyperglycemia Anemia Qualified Codes: D64.9 - Anemia, unspecified Disposition: ADMITTED INPATIENT Admit to: Med Surg Condition: Serious Discharged With: Self Critical Care Note Critical Care Time?: Yes (45 min-critical care time only) Critical care comment: Due to concerns for patients condition deteriorating, the care required my highest level of attention and readiness to intervene. I assessed the patient, reviewed the medical records, ordered the appropriate tests and treatments, then reassessed for results and responsiveness. I communicated with medical personnel and consultants and formulated a plan of care. Total critical care time excludes any procedures Stability Stability form required: No I personally scribed for BRENNA DELAGDILLO MD ([email or web address]) on 11/17/24 at 16:18. Electronically submitted by Blaze Mckinnon ([email or web address]). BRENNA DELGADILLO MD Nov 17, 2024 16:18
--- NOTE | 2024-11-17 16:42 | DVH ---
Indication: r/o osteomyelitis Technique: 32views right foot Comparison: None FINDINGS/IMPRESSION: Erosive changes and destruction of the 4th metatarsal neck/ head, 5th metatarsal neck/ head and 5th p roximal phalanx base. There is extensive soft tissue ulceration and emphysema along the plantar aspec t of the foot at the level of the MTP joints with tiny radiopaque foci /calcification. Possible erosi ve changes and soft tissue emphysema of the 3rd metatarsal head. Dorsal right foot soft tissue edema. Constellation of findings are suggestive of osteomyelitis /infection. MRI right foot can be obtained to further evaluate. Inferior calcaneal spurring.
[2024-11-17 16:58] LABS: Potassium 4.7 mmol/L (3.5-5.1)
[2024-11-17 16:59] LABS: Anion Gap 8 (5-15); Calcium 9.8 mg/dL (8.7-10.4); Carbon Dioxide 27 mmol/L (20-31)
[2024-11-17 17:00] LABS: Chloride 97 mmol/L (98-107); Sodium 132 mmol/L (136-145)
[2024-11-17 17:04] LABS: BUN/Creatinine Ratio 18.6 (10.0-20.0)
[2024-11-17 17:15] LABS: Blood Urea Nitrogen 26 mg/dL (9-23)
[2024-11-17 17:19] LABS: Glucose 437 mg/dL (74-106)
[2024-11-17] MEDS: SODIUM CHLORIDE 0.9% 1,000 ML IV ONE (17:35)
[2024-11-17 17:42] LABS: Hematocrit 31.5 % (36.0-46.0); Hemoglobin 10.4 g/dL (12.2-16.2); Mean Corpuscular Hemoglobin 27.9 pg (28.0-32.0); Mean Corpuscular Volume 84.3 fL (80.0-100.0); Nucleated Red Blood Cells % 0.1 %
--- NOTE | 2024-11-17 18:07 | DVH ---
EXAM: XR Left Foot Complete, 3 or More Views CLINICAL INDICATION: r/o osteomyelitis TECHNIQUE: Frontal, lateral and oblique views of the left foot. COMPARISON: No relevant prior studies available. FINDINGS: BONES/JOINTS: No obvious radiographic evidence of osteomyelitis. However, if clinical suspicion rem ains high, further evaluation with 3 phase bone scan or MRI is recommended. No acute fracture. No d islocation. No erosive changes to the osseous structures. SOFT TISSUES: Soft tissue swelling. No radiopaque foreign body. OTHER FINDINGS: Comparison None. IMPRESSION: No obvious radiographic evidence of osteomyelitis. However, if clinical suspicion remains high, furt her evaluation with 3 phase bone scan or MRI is recommended. HS:Y
[2024-11-17] MEDS ORDERED: PIPERACILLIN-TAZOB 3.375GM 100 ML IV ONE (18:15)
[2024-11-17] MEDS ORDERED: VANCOMYCIN PER PHARMACY 0 MG IV SCH ×2 (18:15→19:30)
[2024-11-17] MEDS ORDERED: DEXTROSE (50%) 50ML SYRG IV PRN (19:30)
[2024-11-17] MEDS ORDERED: ACETAMINOPHEN 325 MG TAB PO PRN (19:30)
[2024-11-17] MEDS: InsuLIN REG 1unit/0.01ml Soln (100units/ml) IV ONE (20:26)
[2024-11-17] MEDS: InsuLIN REG 1unit/0.01ml Soln (100units/ml) SC SCH (20:37)
[2024-11-17] MEDS: VANCOMYCIN 1.25GM/250ML 250 ML IV ONE (20:41)
[2024-11-17] MEDS: ACCU-CHEK COMFORT CURVE STRIP VI SCH (20:42)
[2024-11-17] MEDS: PIPERACILLIN-TAZOB 3.375GM 100 ML IV SCH (20:42)
[2024-11-17 21:12] VITALS: PULSE 86; RESP 20; O2SAT 98
[2024-11-17] MEDS: HYDROcodone-ACET 5/325MG TAB PO PRN (21:37)
--- NOTE | 2024-11-17 21:43 | DVHHP2 ---
History of Present Illness Reason for Visit: Bilateral foot pain History of Present Illness 48-year-old female presents for evaluation of bilateral foot pain. Patient reports having bilateral foot debridement a week ago. She states having bilateral foot pain worse on the right foot. No fever or chills. 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 No other acute complaints reported. Past Medical History Chronic kidney disease, diabetes mellitus, depression, asthma, anemia Past Surgical History BTL, foot debridement. Family History Noncontributory Smoke: No ALCOHOL: none Drugs: None Lives: with Family Review of Systems Review of Systems Review of systems are currently negative otherwise addressed in HPI. Allergies: Coded Allergies: NO KNOWN ALLERGIES (Unverified , 06/26/12) Medications Current Medications Medications Dose Ordered Sig/Edmundo Route Start Time Stop Time Status Last Admin Dose Admin Vancomycin HCl 0 ml @ 0 mls/hr UD IV 11/17/24 18:15 Cancel Piperacillin Sod/ Tazobactam Sod 100 ml @ 25 mls/hr Q8HR IV 11/17/24 22:00 11/17/24 20:42 25 MLS/HR Vancomycin HCl 0 ml @ 0 mls/hr UD IV 11/17/24 19:30 Diagnostic Test (Pha) 1 strip IQ4HR 11/17/24 20:00 11/17/24 20:42 1 STRIP Insulin Human Regular IQ4HR SC 11/17/24 20:00 11/17/24 20:37 8 UNITS Dextrose 50 ml UD PRN IV 11/17/24 19:30 Acetaminophen/ Hydrocodone Bitart 1 tab Q4HP PRN PO 11/17/24 19:30 Ondansetron HCl 4 mg Q4HP PRN IV 11/17/24 19:30 Acetaminophen 650 mg Q6HP PRN PO 11/17/24 19:30 Exam Vital Signs Vital Signs Date Time Temp Pulse Resp B/P (MAP) Pulse Ox O2 Delivery O2 Flow Rate FiO2 11/17/24 21:12 98.1 89 19 140/80 (100) 95 98.1 11/17/24 21:12 Room Air* 0 21 Exam Gen: 48-year-old female in mild distress Skin: Warm, dry, normal color and texture, no rash. HEENT: Normocephalic atraumatic, mucous membranes moist and pink. Neck: Cervical and supraclavicular nodes normal without enlargement, trachea is midline, thyroid gland is normal without masses. Pulmonary: Clear to auscultation and percussion bilaterally. Cardiac: Regular rate and rhythm. No murmur Abdomen: Soft, nontender, nondistended, bowel sounds present all 4 quadrants, no guarding, no rigidity, no organomegaly. Extremities: No cyanosis, clubbing, bilateral foot wounds Neuro: Cranial nerves II through XII grossly intact, normal affect and speech, no focal motor deficits. Labs/Xrays ORDERING PHYSICIAN: BRENNA DELGADILLO MD PROCEDURE(s): RFOT2 - R FOOT 2 VIEW XRAY REASON: r/o osteomyelitis ORDER NUMBER(s): [id number], ACCESSION NUMBER(s): [id number] Indication: r/o osteomyelitis Technique: 32views right foot Comparison: None FINDINGS/IMPRESSION: Erosive changes and destruction of the 4th metatarsal neck/ head, 5th metatarsal neck/ head and 5th proximal phalanx base. There is extensive soft tissue ulceration and emphysema along the plantar aspect of the foot at the level of the MTP joints with tiny radiopaque foci /calcification. Possible erosive changes and soft tissue emphysema of the 3rd metatarsal head. Dorsal right foot soft tissue edema. Constellation of findings are suggestive of osteomyelitis /infection. MRI right foot can be obtained to further evaluate. Inferior calcaneal spurring. RING PHYSICIAN: BRENNA DELGADILLO MD PROCEDURE(s): LFOT2 - L FOOT 2 VIEW XRAY REASON: r/o osteomyelitis ORDER NUMBER(s): [id number], ACCESSION NUMBER(s): [id number] EXAM: XR Left Foot Complete, 3 or More Views CLINICAL INDICATION: r/o osteomyelitis TECHNIQUE: Frontal, lateral and oblique views of the left foot. COMPARISON: No relevant prior studies available. FINDINGS: BONES/JOINTS: No obvious radiographic evidence of osteomyelitis. However, if clinical suspicion remains high, further evaluation with 3 phase bone scan or MRI is recommended. No acute fracture. No dislocation. No erosive changes to the osseous structures. SOFT TISSUES: Soft tissue swelling. No radiopaque foreign body. OTHER FINDINGS: Comparison None. IMPRESSION: No obvious radiographic evidence of osteomyelitis. However, if clinical suspicion remains high, further evaluation with 3 phase bone scan or MRI is recommended. HS:Y Labs Test 11/17/24 20:33 11/17/24 16:28 Range/Units POC Glucose 332 H 70-106 mg/dl White Blood Count 9.0 4.4-10.8 10^3/uL Red Blood Count 3.74 L 4.0-5.20 10^6/uL Hemoglobin 10.4 L 12.2-16.2 g/dL Hematocrit 31.5 L 36.0-46.0 % Mean Corpuscular Volume 84.3 80.0-100.0 fL Mean Corpuscular Hemoglobin 27.9 L 28.0-32.0 pg Mean Corpuscular Hemoglobin Concent 33.1 32.0-36.0 g/dL Red Cell Distribution Width 13.2 11.8-14.3 % Platelet Count 646 H 140-450 10^3/uL Mean Platelet Volume 7.3 6.9-10.8 fL Neutrophils (%) (Auto) 58.7 37.0-80.0 % Lymphocytes (%) (Auto) 31.3 10.0-50.0 % Monocytes (%) (Auto) 7.6 0.0-12.0 % Eosinophils (%) (Auto) 1.6 0.0-7.0 % Basophils (%) (Auto) 0.8 0.0-2.0 % Neutrophils # (Auto) 5.3 1.6-8.6 10 ^3/uL Lymphocytes # (Auto) 2.8 0.4-5.4 10 ^3/uL Monocytes # (Auto) 0.7 0-1.3 10 ^3/uL Eosinophils # (Auto) 0.1 0-0.8 10 ^3/uL Basophils # (Auto) 0.1 0-0.2 10 ^3/uL Nucleated Red Blood Cells 0.1 % Sodium Level 132 L 136-145 mmol/L Potassium Level 4.7 3.5-5.1 mmol/L Chloride Level 97 L 98-107 mmol/L Carbon Dioxide Level 27 20-31 mmol/L Anion Gap 8 5-15 Blood Urea Nitrogen 26 H 9-23 mg/dL Creatinine 1.40 H 0.550-1.02 mg/dL Glomerular Filtration Rate Calc 47 >90 mL/min BUN/Creatinine Ratio 18.6 10.0-20.0 Serum Glucose 437 *H 74-106 mg/dL Calcium Level 9.8 8.7-10.4 mg/dL Assessment/Plan Assessment/Plan Assessment Foot osteomyelitis Uncontrolled diabetes mellitus Chronic kidney disease Plan Admit the patient to [facility] surge to the hospitalist Podiatry consult Zosyn/vancomycin Pain management Resume home medications Continue treatment per orders. Plan discussed with: Patient My Orders Orders - REA ABARCA Procedure Category Date Status Time Piperacillin-Tazob PHA 11/17/24 In Process 3.375gm (Zosyn 3.375g 22:00 Vancomycin Per PHA 11/17/24 In Process Pharmacy 19:30 *Podiatry Consult CONS 11/17/24 Transmitted Musson(Dvmg) 19:24 Consistent DIET 11/18/24 Transmitted Carb(Ccho)Diabetes Breakfast Wound Culture W/ Gs [place] 11/17/24 Logged 19:24 Wound Culture W/ Gs [place] 11/17/24 Logged 19:24 Basic Metabolic Panel LAB 11/18/24 Verified 04:00 Glucose Blood PHA 11/17/24 In Process (Accu-Chek Com[place] 20:00 Insulin R (Human) PHA 11/17/24 In Process (Insulin R) 20:00 Dextrose 50% Syringe PHA 11/17/24 In Process 19:30 Admit ADMIT 11/17/24 Transmitted 19:24 Hydrocodone-Acet PHA 11/17/24 In Process 5/325mg Tab ([place] 19:30 Ondansetron Hcl PHA 11/17/24 In Process (Zofran) 19:30 Condition: Fair [place] 11/17/24 In Process 19:24 Acetaminophen Tablet PHA 11/17/24 In Process (Tylenol Tablet) 19:30 Bedrest With Bathroom [place] 11/17/24 In Process Privileg 19:24 Date of Service: Nov 17, 2024 Billing Provider: REA ABARCA Common Visit Codes: [id number] INP/OBS CARE (HIGH) REA ABARCA Nov 17, 2024 21:43
[2024-11-18] VITALS (10 sets, daily range): BP systolic 98–138; BP diastolic 57–86; PULSE 68–92; RESP 16–18; TEMP 97–98.9; O2SAT 97–100
[2024-11-18 06:40] LABS: Chloride 104 mmol/L (98-107); Potassium 4.6 mmol/L (3.5-5.1); Sodium 136 mmol/L (136-145)
[2024-11-18 06:46] LABS: BUN/Creatinine Ratio 25.6 (10.0-20.0)
[2024-11-18 06:50] LABS: Blood Urea Nitrogen 30 mg/dL (9-23); Calcium 8.6 mg/dL (8.7-10.4); Glucose 200 mg/dL (74-106)
[2024-11-18 06:51] LABS: Nucleated Red Blood Cells % 0.1 %
[2024-11-18 06:53] LABS: Hematocrit 29.9 % (36.0-46.0); Hemoglobin 10.0 g/dL (12.2-16.2); Mean Corpuscular Hemoglobin 28.1 pg (28.0-32.0); Mean Corpuscular Volume 83.9 fL (80.0-100.0)
[2024-11-18 06:54] LABS: Anion Gap 8 (5-15); Carbon Dioxide 24 mmol/L (20-31)
[2024-11-18] MEDS: INSULIN LANTUS (GLARGINE) 1 /0.01ml (100units/ml) SC ONE (09:30)
--- NOTE | 2024-11-18 09:52 | DVH ---
CLINICAL INDICATION: r/o OM COMPARISON: Radiograph of the left foot dated 11/17/2024. TECHNIQUE: Multiplanar, multisequence MRI of the left foot was performed without intravenous contrast . Contrast: None. INTERPRETATION: Bones: No evidence of acute fracture. There is no marrow replacing lesion. Soft tissues: The Lisfranc ligament is intact. The medial and lateral collateral ligaments are intac t at the metatarsophalangeal joints. The flexor and extensor tendons are intact. There is no planta r plate tear. There is no soft tissue mass or fluid collection. Soft tissue swelling of the dorsal forefoot. There is edema within the intrinsic muscles of the foot. Heel spur noted. IMPRESSION: 1. No evidence of osteomyelitis in the left foot. 2. Subcutaneous edema, nonspecific but may reflect cellulitis in the appropriate clinical setting.
--- NOTE | 2024-11-18 10:23 | DVH ---
CLINICAL INDICATION: r/o OM COMPARISON: Radiographs of the right foot performed on 11/17/2024. TECHNIQUE: Multiplanar, multisequence MRI of the right foot was performed without intravenous contras t. Contrast: None. INTERPRETATION: Bones: T1 hypointensity in the 3rd metatarsal head and T1 hypointensity in the Entire visualized 3rd proximal and middle phalanx. There is corresponding edema in the bones, consistent with osteomyelitis . Chronic appearing deformities of the distal 4th and 5th metatarsal bones. Joints: There is 3rd metatarsophalangeal joint effusion. Hammertoe deformities noted. Soft tissues: Large skin defect and ulceration in the plantar surface of the surgical subcutaneous ed ean and emphysema noted. No retracted tendon or ligament injury. Edema in the intrinsic muscles of t he foot may reflect denervation edema or myositis. IMPRESSION: 1. Osteomyelitis in the 3rd metatarsal bone, and the 3rd proximal and middle phalanx. 2. Plantar ulceration and soft tissue defect deep to the 3rd toe with edema and emphysema suggesting soft tissue infection. 3. Edema in the intrinsic muscles of the foot may reflect denervation edema or myositis.
[2024-11-18] MEDS: ACCU-CHEK COMFORT CURVE STRIP VI SCH (11:52)
[2024-11-18] MEDS: INSULIN LANTUS (GLARGINE) 1 /0.01ml (100units/ml) SC SCH (11:54)
[2024-11-18] MEDS: INSULIN LISPRO (HUMAN) 100 UNITS/ML ML SC SCH ×2 (11:55→11:56)
[2024-11-18] MEDS: VANCOMYCIN 1GM/250ML KIT 250 ML IV SCH (14:07)
--- NOTE | 2024-11-18 14:48 | DVHPNRES ---
Progress Note Date Seen: Nov 18, 2024 Resident Creating Document: JUAN MYERS RESIDENT Has the PT tested + for MRSA If YES, has PT been informed?: No Medical Necessity Reason Pt with a Central, PICC or Fol: No Subjective Review of Systems Patient seen at bedside. Still reports pain on bilateral feet. MRI was done today which shows osteomyelitis on the right foot and cellulitis in the left foot. She Reports no fever, chills, chest pain, shortness of breath, nausea, vomiting. Her HbA1c is 14. This consulted with Podiatry and procedure will probably be done tomorrow. Patient is homeless and is awaiting for placement. Constitutional: Denies weight loss, fever and chills. HEENT: Denies changes in vision and hearing. Respiratory: Denies shortness of breath and cough Cardiovascular: Denies chest discomfort or palpitations GI: Mild abdominal distention, normal bowel sounds : Denies dysuria and urinary frequency. Musculoskeletal: Denies myalgias and joint pain Skin: Denies rash and pruritus. Neurological: Denies dizziness, headache, vision or hearing problems. decreased sensation in feet Objective vital signs Vital Sign Date Time Temp Pulse Resp B/P (MAP) Pulse Ox O2 Delivery O2 Flow Rate FiO2 11/18/24 13:00 97.6 79 18 138/86 (103) 97 97.6 11/18/24 08:32 Room Air* 0 21 Total Intake and Output 11/17/24 11/17/24 11/18/24 15:00 23:00 07:00 Intake Total 0 ml Balance 0 ml medications Current Medications Medications Dose Ordered Sig/Edmundo Route Start Time Stop Time Status Last Admin Dose Admin Vancomycin HCl 0 ml @ 0 mls/hr UD IV 11/17/24 18:15 Cancel Piperacillin Sod/ Tazobactam Sod 100 ml @ 25 mls/hr Q8HR IV 11/17/24 22:00 11/18/24 05:31 25 MLS/HR Vancomycin HCl 0 ml @ 0 mls/hr UD IV 11/17/24 19:30 Dextrose 50 ml UD PRN IV 11/17/24 19:30 Acetaminophen/ Hydrocodone Bitart 1 tab Q4HP PRN PO 11/17/24 19:30 11/17/24 22:45 1 TAB Ondansetron HCl 4 mg Q4HP PRN IV 11/17/24 19:30 Acetaminophen 650 mg Q6HP PRN PO 11/17/24 19:30 Insulin Human Lispro AC SC 11/18/24 11:30 11/18/24 11:55 2 UNITS Insulin Human Lispro 3 units AC SC 11/18/24 11:30 11/18/24 11:56 3 UNITS Insulin Glargine 10 units DAILY@1000 SC 11/18/24 10:00 11/18/24 11:54 10 UNITS Diagnostic Test (Pha) 1 strip ACHS 11/18/24 11:30 11/18/24 11:52 1 STRIP Vancomycin HCl 250 ml @ 200 mls/hr Q16H IV 11/18/24 12:00 11/18/24 14:07 200 MLS/HR Examination General: Patient alert and oriented in person, place and time. Patient following commands. HEENT: Normocephalic, atraumatic, moist mucous membranes Respiratory/pulmonary: Clear lungs bilaterally, vesicular murmurs present in almost all lung garcia, no associated crackles or wheezes. Cardiovascular: Normal heart sounds S1 and S2 with no associated murmurs Abdomen: Abdomen nondistended, there is no pain to palpation in any of the abdominal quadrants, no palpable masses. Extremities: There is no peripheral edema present at the lower extremities. both feet had surgical debridment. Peripheral Pulses: 3+ Radial (R). 3+ Radial (L). 3+ Dorsalis pedis (R). 3+ Dorsalis pedis(L) Skin: No rashes or pruritus, there is no sacral edema present at this time. Neurological: Intact cranial nerves with no focal neurologic deficits. decreased sensation feet. laboratory and microbiology Laboratory Tests 11/18/24 05:42 Test 11/18/24 05:42 Range/Units Serum Glucose 200 H 74-106 mg/dL Problem List/Assessment/Plan Problem List/Assessment/Plan Right Foot osteomyelitis plan: podiatry cosult Iv vancomycin IV zosyn Hydrocodone Left Foot cellulites: plan:continue IV antibiotics Uncontrolled diabetes mellitus plan : continue insulin sliding scale and Lantus educated diabetic diet Hba1c >14 Chronic Kidney disease plan: Avoid nephrotoxic medication monitor kidney function plan discussed with patient, and nurse case discussed with Dr. Rausch. Plan discussed with: Patient Date of Service: Nov 18, 2024 Billing Provider: WALESKA RAUSCH MD Common Visit Codes: [id number] INP/OBS CARE(HIGH) JUAN MYERS RESIDENT Nov 18, 2024 14:48 WALESKA RAUSCH MD Nov 18, 2024 21:17
[2024-11-18] MEDS ORDERED: INSULIN LANTUS (GLARGINE) 1 /0.01ml (100units/ml) SC SCH (22:00)
[2024-11-19] VITALS (8 sets, daily range): BP systolic 100–126; BP diastolic 62–83; PULSE 64–85; RESP 13–20; TEMP 97.4–98.7; O2SAT 96–100
[2024-11-19 01:40] LABS: Urine Protein, UAD TRACE (Negative)
[2024-11-19 02:13] LABS: Amphetamine Screen, Urine Neg (NEGATIVE); Barbiturate Scree,Urine Neg (NEGATIVE); Benzodiazephine Screen, Urine Neg (NEGATIVE); Cannabinoid Screen, Urine Neg (NEGATIVE); Cocaine Screen, Urine Neg (NEGATIVE); Opiate Scree,Urine Neg (NEGATIVE); Phencyclidine Screen, Urine Neg (NEGATIVE)
[2024-11-19] MEDS: VANCOMYCIN 1GM/200ML PM 200 ML IV ONE (03:33)
[2024-11-19 06:34] LABS: Hemoglobin 10.4 g/dL (12.2-16.2); Mean Corpuscular Volume 84.3 fL (80.0-100.0); Nucleated Red Blood Cells % 0.1 %
[2024-11-19 06:39] LABS: Hematocrit 31.7 % (36.0-46.0); Mean Corpuscular Hemoglobin 27.6 pg (28.0-32.0)
[2024-11-19 06:40] LABS: Chloride 103 mmol/L (98-107); INR 1.0 (0.9-1.15); Partial Thromboplastin Time 24.5 SEC (24.5-34.5); Potassium 4.2 mmol/L (3.5-5.1); Prothrombin Time 10.6 sec (9.3-11.8)
[2024-11-19 06:41] LABS: Anion Gap 7 (5-15); Carbon Dioxide 24 mmol/L (20-31)
[2024-11-19 06:46] LABS: BUN/Creatinine Ratio 21.9 (10.0-20.0)
[2024-11-19 06:54] LABS: Blood Urea Nitrogen 25 mg/dL (9-23); Calcium 8.5 mg/dL (8.7-10.4); Glucose 226 mg/dL (74-106); Sodium 134 mmol/L (136-145)
[2024-11-19] MEDS ORDERED: KETOROLAC TROMETH 30 MG/ML 1ML VIAL ONE (13:30)
[2024-11-19] MEDS ORDERED: LIDOCAINE 1% INJ PF 5ML AMP ONE (13:30)
[2024-11-19] MEDS ORDERED: ONDANSETRON HCL 4 MG/2 ML VIAL ONE (13:30)
[2024-11-19] MEDS ORDERED: PROPOFOL 10 MG/ML 20 ML IV ONE (13:31)
[2024-11-19] MEDS ORDERED: GLYCOPYRROLATE 0.2 MG/ML 1ML VIAL ONE (13:31)
[2024-11-19] MEDS ORDERED: KETAMINE 50mg/ML 1ml syringe IV ONE (13:47)
[2024-11-19] MEDS: ceFAZolin 2 GM/D5W50ml 50 ML IV ONE (13:48)
[2024-11-19] MEDS: BUPIVACAINE 0.5% P/F INJ 10 ML VIAL ONE (14:38)
[2024-11-19] MEDS ORDERED: HYDROmorphone HCL 2 MG/ML VL/or syr IV PRN (15:00)
[2024-11-19] MEDS ORDERED: hydrALAZINE HCL 20 MG/ML VL IV PRN (15:00)
[2024-11-19] MEDS ORDERED: ONDANSETRON HCL 4 MG/2 ML VIAL IV PRN (15:00)
[2024-11-19] MEDS ORDERED: FLUMAZENIL 0.1 MG/ML INJ 10ML MDV IV PRN (15:00)
[2024-11-19] MEDS ORDERED: NALOXONE HCL 0.4 MG/ML VIAL IV PRN (15:00)
[2024-11-19] MEDS ORDERED: fentaNYL CITRATE 100 MCG/2 ML VL IV PRN (15:00)
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
--- NOTE | 2024-11-19 15:06 | DVHOP2 ---
Operative Report - 2 Report Details Date: 11/19/24 Preop Diagnosis: 1. Right foot osteomyelitis 2. Right foot abscess 3. Right foot cellulitis 4. 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 These include but are not limited to complications of anesthesia, postoperative infection, incomplete relief of symptoms, recurrence of symptoms, damage to blood vessels, nerves and tendons, deep venous thrombosis, pulmonary embolism and possible need for repeat surgery in the future. Complications: None Estimated Blood Loss: Minimal Fluids: See anesthesia Findings: Consistent with the diagnosis Indications for Surgery: Worsening right foot wound Name of Procedure Performed 1. Right foot I&D to bone (48888) 2. Right foot 3rd metatarsal bone biopsy () Procedure Details Procedure Details: PRE-PROCEDURE INFORMATION: In the pre-op holding area, the extremity to be operated on was clearly marked and the patient verified correct laterality of the marking. The patient was transferred to the OR table and placed in a supine position. A timeout was performed in which identification of the correct patient, procedure, location, and materials was done. The right foot and leg were prepped and draped in normal sterile fashion. DESCRIPTION OF PROCEDURE: Attention was directed to the right where area of fluctuance was noted. An incision was made over this area and was deepened through blunt dissection. The incision was deepened to the level of abscess and bone. Care was taken to the dissection to avoid any neurovascular and tendinous structures. The incision was deepened to the bone, and the abscess appeared to be purulent fluid consistent with pus. The cortices of the bone was then removed with rongeur an all necrotic tissue. After the abscess was drained, the area was irrigated with 3 L normal saline using cysto tubing. Deep cultures were then obtained from the wound. The area was then inspected and any areas of tracking, especially along the tendons were also drained. A bone biopsy was then taken of the 3rd metatarsal which was deepened to the muscle belly and tendons. The bone was then sent to pathology to determine the extent of osteomyelitis. The wound was packed with Betadine-soaked gauze and we will need to be closed at a later date. POSTOPERATIVE INFORMATION: The patient tolerated the above noted procedure and anesthesia well and was transferred to the PACU with vital signs stable, and vascular status intact with capillary refill intact to all digits. Deep cultures were taken and bone biopsy was sent off. Patient will need 6 weeks IV antibiotics. Specimen: Right 3rd metatarsal Condition Good Disposition Still a Patient JESICA LEIVA DPM Nov 19, 2024 15:06
--- NOTE | 2024-11-19 16:57 | DVHPNRES ---
Progress Note Date Seen: Nov 19, 2024 Resident Creating Document: JUAN MYERS RESIDENT Has the PT tested + for MRSA If YES, has PT been informed?: No Medical Necessity Reason Pt with a Central, PICC or Fol: No Subjective Review of Systems Patient went to I&D procedure on her right foot. Procedure was done successfully. She has bilateral feet pain. She Reports no fever, chills, chest pain, shortness of breath, nausea, vomiting. Her HbA1c is 14. Constitutional: Denies weight loss, fever and chills. HEENT: Denies changes in vision and hearing. Respiratory: Denies shortness of breath and cough Cardiovascular: Denies chest discomfort or palpitations GI: no abdominal distension, bowel sounds normal. : Denies dysuria and urinary frequency. Musculoskeletal: Denies myalgias and joint pain Skin: Denies rash and pruritus. Neurological: Denies dizziness, headache, vision or hearing problems. decreased sensation in both feet. Objective vital signs Vital Sign Date Time Temp Pulse Resp B/P (MAP) Pulse Ox O2 Delivery O2 Flow Rate FiO2 11/19/24 16:00 66 16 140/81 (100) 97 11/19/24 14:48 98.9 98.9 11/19/24 14:48 Room Air 11/19/24 08:00 0 21 Total Intake and Output 11/18/24 11/18/24 11/19/24 15:00 23:00 07:00 Intake Total 100 ml 1450 ml 950 ml Balance 100 ml 1450 ml 950 ml medications Current Medications Medications Dose Ordered Sig/Edmundo Route Start Time Stop Time Status Last Admin Dose Admin Vancomycin HCl 0 ml @ 0 mls/hr UD IV 11/17/24 18:15 Cancel Piperacillin Sod/ Tazobactam Sod 100 ml @ 25 mls/hr Q8HR IV 11/17/24 22:00 11/19/24 05:34 25 MLS/HR Vancomycin HCl 0 ml @ 0 mls/hr UD IV 11/17/24 19:30 Dextrose 50 ml UD PRN IV 11/17/24 19:30 Acetaminophen/ Hydrocodone Bitart 1 tab Q4HP PRN PO 11/17/24 19:30 11/17/24 22:45 1 TAB Ondansetron HCl 4 mg Q4HP PRN IV 11/17/24 19:30 Acetaminophen 650 mg Q6HP PRN PO 11/17/24 19:30 Insulin Human Lispro AC SC 11/18/24 11:30 11/18/24 17:39 1 UNITS Insulin Human Lispro 3 units AC SC 11/18/24 11:30 11/18/24 17:40 3 UNITS Insulin Glargine 10 units DAILY@1000 SC 11/18/24 10:00 11/19/24 10:22 10 UNITS Diagnostic Test (Pha) 1 strip ACHS 11/18/24 11:30 11/19/24 11:48 1 STRIP Vancomycin HCl 250 ml @ 200 mls/hr Q16H IV 11/18/24 12:00 11/19/24 03:37 200 MLS/HR Examination General: Patient alert and oriented in person, place and time. Patient following commands. HEENT: Normocephalic, atraumatic, moist mucous membranes Respiratory/pulmonary: Clear lungs bilaterally, vesicular murmurs present in almost all lung garcia, no associated crackles or wheezes. Cardiovascular: Normal heart sounds S1 and S2 with no associated murmurs Abdomen: Abdomen nondistended, there is no pain to palpation in any of the abdominal quadrants, no palpable masses. Extremities: Status post I&D of right foot. There is no peripheral edema present at the lower extremities. Left foot cellulitis. Peripheral Pulses: 3+ Radial (R). 3+ Radial (L). 3+ Dorsalis pedis (R). 3+ Dorsalis pedis(L) Skin: No rashes or pruritus, there is no sacral edema present at this time. Neurological: Intact cranial nerves with no focal neurologic deficits. Decreased sensation in both feet laboratory and microbiology Laboratory Tests 11/19/24 05:03 Test 11/19/24 05:03 Range/Units Serum Glucose 226 H 74-106 mg/dL Microbiology Date/Time Source Procedure Growth Status 11/18/24 00:45 Foot Right Gram Stain - Final Resulted 11/18/24 00:45 Foot Right Wound Culture - Preliminary Resulted Problem List/Assessment/Plan Problem List/Assessment/Plan Right Foot osteomyelitis right foot diabetic ulcer Right foot cellulitis plan: pt underwent Right foot I&D to bone and Right foot 3rd metatarsal bone biopsy Iv vancomycin IV zosyn Hydrocodone Left Foot cellulites: plan:continue IV antibiotics Uncontrolled diabetes mellitus plan : continue insulin sliding scale and Lantus plus lispro bolus educated diabetic diet Hba1c >14 Chronic Kidney disease plan: Avoid nephrotoxic medication monitor kidney function plan discussed with patient, and nurse case discussed with Dr. Rausch. Plan discussed with: Patient Dietary Evaluation Review Comments: 1) Clint 1 pk BID 2) Refer Vice President Of News for diabetes education 3) Monitor lab values, skin trend, wt trend Expected Outcomes/Goals: wound to improve FU 3-5 days Date of Service: Nov 19, 2024 Billing Provider: WALESKA RAUSCH MD Common Visit Codes: [id number] INP/OBS CARE(HIGH) JUAN MYERS RESIDENT Nov 19, 2024 16:57 WALESKA RAUSCH MD Nov 20, 2024 08:45
[2024-11-19] MEDS: INSULIN LISPRO (HUMAN) 100 UNITS/ML ML SC ONE (23:05)
[2024-11-20] VITALS (8 sets, daily range): BP systolic 117–141; BP diastolic 71–88; PULSE 62–90; RESP 16–20; TEMP 97.8–98.6; O2SAT 93–100
[2024-11-20 05:49] LABS: Chloride 100 mmol/L (98-107); Potassium 4.7 mmol/L (3.5-5.1)
[2024-11-20 05:50] LABS: Anion Gap 8 (5-15); Carbon Dioxide 23 mmol/L (20-31)
[2024-11-20 05:51] LABS: Calcium 9.3 mg/dL (8.7-10.4)
[2024-11-20 05:56] LABS: BUN/Creatinine Ratio 23.8 (10.0-20.0)
[2024-11-20 06:07] LABS: Blood Urea Nitrogen 36 mg/dL (9-23); Glucose 376 mg/dL (74-106); Sodium 131 mmol/L (136-145)
[2024-11-20] MEDS: INSULIN LANTUS (GLARGINE) 1 /0.01ml (100units/ml) SC SCH (09:15)
[2024-11-20] MEDS: CEFEPIME 1GM/ 50ML 50 ML IV ONE (09:41)
[2024-11-20] MEDS: CEFEPIME 1GM/ 50ML 50 ML IV SCH (17:08)
--- NOTE | 2024-11-20 18:21 | DVHPNRES ---
Progress Note Date Seen: Nov 20, 2024 Resident Creating Document: JUAN MYERS RESIDENT Has the PT tested + for MRSA If YES, has PT been informed?: No Medical Necessity Reason Pt with a Central, PICC or Fol: No Subjective Review of Systems 48-year-old female presents for evaluation of bilateral foot pain. Patient reports having bilateral foot debridement a week ago. She states having bilateral foot pain worse on the right foot. No fever or chills. 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 No other acute complaints reported. Patient seen and examined at bedside. Patient reports no overnight events. Patient Reports no new complaints at this time, reported that she feels better than yesterday , except she has bilateral feet pain. Objective vital signs Vital Sign Date Time Temp Pulse Resp B/P (MAP) Pulse Ox O2 Delivery O2 Flow Rate FiO2 11/20/24 16:46 98.6 71 18 141/85 (103) 98 98.6 11/20/24 07:41 Room Air* 0 21 Total Intake and Output 11/19/24 11/19/24 11/20/24 15:00 23:00 07:00 Intake Total 200 ml 250 ml 550 ml Balance 200 ml 250 ml 550 ml medications Current Medications Medications Dose Ordered Sig/Edmundo Route Start Time Stop Time Status Last Admin Dose Admin Vancomycin HCl 0 ml @ 0 mls/hr UD IV 11/17/24 18:15 Cancel Vancomycin HCl 0 ml @ 0 mls/hr UD IV 11/17/24 19:30 Dextrose 50 ml UD PRN IV 11/17/24 19:30 Acetaminophen/ Hydrocodone Bitart 1 tab Q4HP PRN PO 11/17/24 19:30 11/19/24 23:18 1 TAB Ondansetron HCl 4 mg Q4HP PRN IV 11/17/24 19:30 Acetaminophen 650 mg Q6HP PRN PO 11/17/24 19:30 Insulin Human Lispro AC SC 11/18/24 11:30 11/20/24 17:25 3 UNITS Insulin Human Lispro 3 units AC SC 11/18/24 11:30 11/20/24 17:25 3 UNITS Diagnostic Test (Pha) 1 strip ACHS 11/18/24 11:30 11/20/24 17:08 1 STRIP Vancomycin HCl 250 ml @ 200 mls/hr Q16H IV 11/18/24 12:00 11/20/24 12:34 200 MLS/HR Insulin Glargine 15 units DAILY@1000 SC 11/20/24 06:45 11/20/24 09:30 15 UNITS Cefepime HCl 50 ml @ 12.5 mls/hr Q12H IV 11/20/24 18:00 11/20/24 17:08 12.5 MLS/HR laboratory and microbiology Laboratory Tests 11/20/24 04:27 11/19/24 05:03 Test 11/20/24 04:27 Range/Units Serum Glucose 376 H 74-106 mg/dL Microbiology Date/Time Source Procedure Growth Status 11/19/24 14:42 Foot Right Gram Stain - Final Resulted 11/19/24 14:42 Foot Right Anaerobic Culture - Preliminary Resulted 11/19/24 14:42 Foot Right Aerobic Culture - Preliminary Resulted Problem List/Assessment/Plan Problem List/Assessment/Plan Right Foot osteomyelitis right foot diabetic ulcer Right foot cellulitis plan: pt underwent Right foot I&D to bone and Right foot 3rd metatarsal bone biopsy Iv vancomycin IV zosyn is changed to IV Cefepime Hydrocodone Left Foot cellulites: plan:continue IV antibiotics Uncontrolled diabetes mellitus plan : continue insulin sliding scale and Lantus plus lispro bolus educated diabetic diet Hba1c >14 Chronic Kidney disease plan: Avoid nephrotoxic medication monitor kidney function Plan disscused with patient for 23 min: Full code plan discussed with patient, and nurse case discussed with Dr. Rausch. Plan discussed with: Patient Dietary Evaluation Review Comments: 1) Clint 1 pk BID 2) Refer Director Of Sales And Marketing for diabetes education 3) Monitor lab values, skin trend, wt trend Expected Outcomes/Goals: wound to improve FU 3-5 days Date of Service: Nov 20, 2024 Billing Provider: WALESKA RAUSCH MD Common Visit Codes: [id number] INP/OBS CARE(HIGH) JUAN MYERS Nov 20, 2024 18:21 WALESKA RAUSCH MD Nov 21, 2024 12:30
[2024-11-20] MEDS: INSULIN LISPRO (HUMAN) 100 UNITS/ML ML SC ONE (23:11)
[2024-11-21] VITALS (8 sets, daily range): BP systolic 108–138; BP diastolic 74–86; PULSE 63–73; RESP 18; TEMP 97.9–98.4; O2SAT 96–100
[2024-11-21] MEDS: VANCOMYCIN 1GM/200ML PM 200 ML IV ONE ×2 (04:03→23:20)
[2024-11-21 06:03] LABS: Hematocrit 33.4 % (36.0-46.0); Hemoglobin 10.9 g/dL (12.2-16.2); Mean Corpuscular Hemoglobin 27.5 pg (28.0-32.0); Mean Corpuscular Volume 84.6 fL (80.0-100.0); Nucleated Red Blood Cells % 0.1 %
[2024-11-21] MEDS ORDERED: INFLUENZA TRIVALENT 2024-2025 0.5 ML INJ IM ONE (08:00)
[2024-11-21] MEDS: PNEUMOCOCCAL VACC POLYS 25 MCG/0.5 ML VIAL IM ONE (10:03)
--- NOTE | 2024-11-21 11:43 | DVHPNRES ---
Progress Note Date Seen: Nov 21, 2024 Resident Creating Document: JUAN MYERS RESIDENT Has the PT tested + for MRSA If YES, has PT been informed?: No Medical Necessity Reason Pt with a Central, PICC or Fol: No Subjective Review of Systems 48-year-old female presents for evaluation of bilateral foot pain. Patient reports having bilateral foot debridement a week ago. She states having bilateral foot pain worse on the right foot. No fever or chills. 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 No other acute complaints reported. Patient seen at bedside. Patient is comfortable, alert x3, and reports less pain than before in her feet. Nurse reported no overnight events. Changes from previous H/P or p: No Changes Objective vital signs Vital Sign Date Time Temp Pulse Resp B/P (MAP) Pulse Ox O2 Delivery O2 Flow Rate FiO2 11/21/24 09:00 98.4 64 18 108/74 (85) 99 98.4 11/21/24 08:00 Room Air* 0 21 Total Intake and Output 11/20/24 11/20/24 11/21/24 15:00 23:00 07:00 Intake Total 400 ml 1470 ml 500 ml Output Total 500 ml Balance 400 ml 970 ml 500 ml medications Current Medications Medications Dose Ordered Sig/Edmundo Route Start Time Stop Time Status Last Admin Dose Admin Vancomycin HCl 0 ml @ 0 mls/hr UD IV 11/17/24 18:15 Cancel Vancomycin HCl 0 ml @ 0 mls/hr UD IV 11/17/24 19:30 Dextrose 50 ml UD PRN IV 11/17/24 19:30 Acetaminophen/ Hydrocodone Bitart 1 tab Q4HP PRN PO 11/17/24 19:30 11/21/24 11:21 1 TAB Ondansetron HCl 4 mg Q4HP PRN IV 11/17/24 19:30 Acetaminophen 650 mg Q6HP PRN PO 11/17/24 19:30 Insulin Human Lispro AC SC 11/18/24 11:30 11/21/24 11:23 3 UNITS Insulin Human Lispro 3 units AC SC 11/18/24 11:30 11/21/24 11:23 3 UNITS Diagnostic Test (Pha) 1 strip ACHS 11/18/24 11:30 11/21/24 11:18 1 STRIP Vancomycin HCl 250 ml @ 200 mls/hr Q16H IV 11/18/24 12:00 11/21/24 04:03 200 MLS/HR Insulin Glargine 15 units DAILY@1000 SC 11/20/24 06:45 11/21/24 10:12 15 UNITS Cefepime HCl 50 ml @ 12.5 mls/hr Q12H IV 11/20/24 18:00 11/21/24 05:26 12.5 MLS/HR Examination General: Patient alert and oriented in person, place and time. Patient following commands. HEENT: Normocephalic, atraumatic, moist mucous membranes Respiratory/pulmonary: Clear lungs bilaterally, vesicular murmurs present in almost all lung garcia, no associated crackles or wheezes. Cardiovascular: Normal heart sounds S1 and S2 with no associated murmurs Abdomen: Abdomen nondistended, there is no pain to palpation in any of the abdominal quadrants, no palpable masses. Extremities: There is no peripheral edema present at the lower extremities. both feet had surgical debridment. Peripheral Pulses: 3+ Radial (R). 3+ Radial (L). 3+ Dorsalis pedis (R). 3+ Dorsalis pedis(L) Skin: No rashes or pruritus, there is no sacral edema present at this time. Neurological: Intact cranial nerves with no focal neurologic deficits. decreased sensation feet. laboratory and microbiology Laboratory Tests 11/21/24 04:37 11/20/24 04:27 Test 11/20/24 04:27 Range/Units Serum Glucose 376 H 74-106 mg/dL Microbiology Date/Time Source Procedure Growth Status 11/19/24 14:42 Foot Right Gram Stain - Final Resulted 11/19/24 14:42 Foot Right Anaerobic Culture - Preliminary Resulted 11/19/24 14:42 Aerobic Culture - Preliminary Staphylococcus aureus Enterococcus faecalis Resulted Problem List/Assessment/Plan Problem List/Assessment/Plan Right Foot osteomyelitis right foot diabetic ulcer Right foot cellulitis plan: pt underwent Right foot I&D to bone and Right foot 3rd metatarsal bone biopsy Iv vancomycin IV zosyn is changed to IV Cefepime Hydrocodone Ordered PICC line for continuous IV antibiotics Social service consulted for SNF placement Left Foot cellulites: plan:continue IV antibiotics Uncontrolled diabetes mellitus plan : continue insulin sliding scale and Lantus plus lispro bolus educated diabetic diet Hba1c >14 Chronic Kidney disease plan: Avoid nephrotoxic medication monitor kidney function Plan disscused with patient for 12 min: Full code plan discussed with patient, and nurse case discussed with Dr. Rausch. Plan discussed with: Patient Dietary Evaluation Review Comments: 1) Clint 1 pk BID 2) Refer Engineering Mgr for diabetes education 3) Monitor lab values, skin trend, wt trend Expected Outcomes/Goals: wound to improve FU 3-5 days Date of Service: Nov 21, 2024 Billing Provider: WALESKA RAUSCH MD Common Visit Codes: [id number] INP/OBS CARE(HIGH) JUAN MYERS RESIDENT Nov 21, 2024 11:43 WALESKA RAUSCH MD Nov 22, 2024 16:53
[2024-11-21] MEDS: LIDOCAINE 1% (LOCAL ANESTH.) PF 5ml SDV ID ONE (14:00)
[2024-11-21] MEDS: SODIUM CHLOR 0.9% PF (SALINE LOCK) 10ML VIAL/SYR IV SCH (23:06)
[2024-11-21] MEDS: VANCOMYCIN 1GM/250ML KIT 250 ML IV SCH (23:22)
[2024-11-22] VITALS (8 sets, daily range): BP systolic 101–144; BP diastolic 60–89; PULSE 71–96; RESP 18–19; TEMP 97.9–98.8; O2SAT 96–100
[2024-11-22] MEDS ORDERED: InsuLIN REG 1unit/0.01ml Soln (100units/ml) SC SCH (07:00)
[2024-11-22] MEDS ORDERED: DEXTROSE (50%) 50ML SYRG IV PRN (07:00)
[2024-11-22 07:27] LABS: Anion Gap 9 (5-15); Carbon Dioxide 23 mmol/L (20-31); Chloride 104 mmol/L (98-107); Potassium 4.6 mmol/L (3.5-5.1)
[2024-11-22 07:28] LABS: Calcium 9.2 mg/dL (8.7-10.4)
[2024-11-22 07:33] LABS: BUN/Creatinine Ratio 31.3 (10.0-20.0)
[2024-11-22 07:36] LABS: Blood Urea Nitrogen 41 mg/dL (9-23); Glucose 206 mg/dL (74-106); Sodium 136 mmol/L (136-145)
[2024-11-22] MEDS: INSULIN LANTUS (GLARGINE) 1 /0.01ml (100units/ml) SC SCH (10:00)
[2024-11-22] MEDS: INSULIN LISPRO (HUMAN) 100 UNITS/ML ML SC SCH (10:11)
[2024-11-22] MEDS: ACCU-CHEK COMFORT CURVE STRIP VI SCH (10:12)
--- NOTE | 2024-11-22 10:34 | DVHPNRES ---
Progress Note Date Seen: Nov 22, 2024 Resident Creating Document: ROSE HURTADO RESIDENT Has the PT tested + for MRSA If YES, has PT been informed?: No Medical Necessity Reason Pt with a Central, PICC or Fol: No Subjective Review of Systems Patient is a 48-year-old female with prior medical history of type 2 diabetes mellitus, chronic kidney disease, peripheral neuropathy, depression, and asthma who presented to the ED with chief complaint of bilateral foot pain. At the time patient stated that a week prior she had been at [facility] for foot ulcer debridement. Patient stated that since discharge from previous institution for pain has worsened, specifically on the right foot. She denied fever, nausea, chills, palpitations, and chest pain. Additionally she is currently not in control of her as she does not regularly check her blood glucose levels nor does she have treatment. On evaluation, she was found in mild distress with bilateral foot wounds. Labs significant for hemoglobin 10.3, creatinine 1.40, BUN 41, and serum glucose of 437. Right foot X-ray was suggestive of possible osteomyelitis. She was admitted for further osteomyelitis workup, antibiotic treatment, and management of glucose. Patient seen at bedside. Status post right foot wound I&D. She states that she is feeling well, eating well, sleeping well, and having bowel movements. Refers the mild pain in the right foot. Denies fever, chills, nausea, and vomiting. PICC line for antibiotics placed yesterday without complications. Currently waiting for SNF placement for completion of antibiotic treatment. Review of system: Constitutional: Denies weight loss, fever and chills. HEENT: Denies changes in vision and hearing. Respiratory: Denies shortness of breath and cough Cardiovascular: Denies chest discomfort or palpitations GI: Denies abdominal distention, abdominal pain, diarrhea : Denies dysuria and urinary frequency. Musculoskeletal: Refers mild pain in right foot Skin: Denies rash and pruritus. Neurological: denies dizziness headache vision or hearing problems Objective vital signs Vital Sign Date Time Temp Pulse Resp B/P (MAP) Pulse Ox O2 Delivery O2 Flow Rate FiO2 11/22/24 05:00 97.9 71 18 101/60 (74) 96 97.9 11/21/24 20:00 Room Air* 0 21 Total Intake and Output 11/21/24 11/21/24 11/22/24 15:00 23:00 07:00 Intake Total 1110 ml 750 ml 100 ml Balance 1110 ml 750 ml 100 ml medications Current Medications Medications Dose Ordered Sig/Edmundo Route Start Time Stop Time Status Last Admin Dose Admin Vancomycin HCl 0 ml @ 0 mls/hr UD IV 11/17/24 18:15 Cancel Vancomycin HCl 0 ml @ 0 mls/hr UD IV 11/17/24 19:30 Acetaminophen/ Hydrocodone Bitart 1 tab Q4HP PRN PO 11/17/24 19:30 11/21/24 23:30 1 TAB Ondansetron HCl 4 mg Q4HP PRN IV 11/17/24 19:30 Acetaminophen 650 mg Q6HP PRN PO 11/17/24 19:30 Insulin Human Lispro AC SC 11/18/24 11:30 Hold 11/22/24 06:43 1 UNITS Cefepime HCl 50 ml @ 12.5 mls/hr Q12H IV 11/20/24 18:00 11/22/24 05:27 12.5 MLS/HR Sodium Chloride 10 ml QSHIFT@10,22 IV 11/21/24 22:00 11/21/24 23:06 10 ML Vancomycin HCl 250 ml @ 200 mls/hr Q16H IV 11/21/24 23:00 11/21/24 23:22 200 MLS/HR Insulin Glargine 20 units DAILY@1000 SC 11/22/24 07:00 11/22/24 10:11 20 UNITS Diagnostic Test (Pha) 1 strip ACHS 11/22/24 07:00 11/22/24 10:12 1 STRIP Dextrose 50 ml UD PRN IV 11/22/24 07:00 Insulin Human Lispro 5 units AC UT 11/22/24 08:00 11/22/24 10:11 5 UNITS Examination General: Patient alert and oriented in person, place and time. Patient following commands. HEENT: Normocephalic, atraumatic, moist mucous membranes Respiratory/pulmonary: Clear lungs bilaterally, vesicular murmurs present in almost all lung garcia, no associated crackles or wheezes. Cardiovascular: Normal heart sounds S1 and S2 with no associated murmurs Abdomen: Abdomen nondistended, there is no pain to palpation in any of the abdominal quadrants, no palpable masses. Extremities: There is no peripheral edema present at the lower extremities. Right foot had surgical debridment. Both feet covered in bandages. Peripheral Pulses: 3+ Radial (R). 3+ Radial (L). Pedal pulses unable to evaluate due to bandages. Skin: No rashes or pruritus Neurological: Intact cranial nerves with no focal neurologic deficits. Decreased sensation feet. laboratory and microbiology Laboratory Tests 11/22/24 05:46 11/21/24 04:37 Test 11/22/24 05:46 Range/Units Serum Glucose 206 H 74-106 mg/dL Microbiology Date/Time Source Procedure Growth Status 11/19/24 14:42 Foot Right Gram Stain - Final Resulted 11/19/24 14:42 Foot Right Anaerobic Culture - Preliminary Resulted 11/19/24 14:42 Aerobic Culture - Preliminary Staphylococcus aureus Enterococcus faecalis Resulted Problem List/Assessment/Plan Problem List/Assessment/Plan Assessment and plan: Right Foot osteomyelitis Right foot cellulitis Right foot with diabetic ulcer -Right Foot I&D and Right 3rd metatarsal bone biopsy (11/19/2024) -Culture: Stahpylococcus aureus and Enterococcus faecalis -Right Foot MRI: Osteomyelitis in the 3rd metatarsal bone, and the 3rd proximal and middle phalanx. Plantar ulceration and soft tissue defect deep to the 3rd toe with edema and emphysema suggesting soft tissue infection. Edema in the intrinsic muscles of the foot may reflect denervation edema or myositis. - Vancomycin IV - Zosyn IV discontinued - Cefepime IV - Jayess -PICC line placed for continuous antibiotics (11/21/2024) -Patient will go to recuperative care with home health for 6 weeks of antibiotics. Left Foot Cellulitis: -Left foot MRI: Subcutaneous edema, nonspecific but may reflect cellulitis in the appropriate clinical setting -Continue IV antibiotics Uncontrolled diabetes mellitus with hyperglycemia: HbA1c > 14 -Insulin sliding scale -Lantus plus lispro bolus -Diabetic diet -Counseled on importance of glycemic control and medication adherence ARCHIE on CKD possibly due to hemodynamically mediated/VMN -Avoid nephrotoxic medication -Monitor kidney function Diabetic Peripheral Neuropathy Case discussed with Dr. Rausch. Goals of care discussed with patient for 20 minutes. Full code. Plan discussed with: Patient Dietary Evaluation Review Comments: 1) Clint 1 pk BID 2) Refer Document Control Clerk for diabetes education 3) Monitor lab values, skin trend, wt trend Expected Outcomes/Goals: wound to improve FU 3-5 days Date of Service: Nov 22, 2024 Billing Provider: WALESKA RAUSCH MD Common Visit Codes: [id number] INP/OBS CARE(HIGH) ROSE HURTADO RESIDENT Nov 22, 2024 10:33 WALESKA RAUSCH MD Nov 23, 2024 21:11
[2024-11-22] MEDS: CEFEPIME 1GM/ 50ML 50 ML IV ONE (12:57)
[2024-11-22] MEDS: CEFEPIME 2GM/50ML NS 50 ML IV SCH (22:02)
[2024-11-23] VITALS (7 sets, daily range): BP systolic 105–147; BP diastolic 60–87; PULSE 77–98; RESP 17–19; TEMP 97.9–99.5; O2SAT 97–100
[2024-11-23] MEDS: VANCOMYCIN 1GM/200ML PM 200 ML IV ONE (05:34)
[2024-11-23 07:18] LABS: Hematocrit 31.8 % (36.0-46.0); Hemoglobin 10.3 g/dL (12.2-16.2); Mean Corpuscular Hemoglobin 27.5 pg (28.0-32.0); Mean Corpuscular Volume 85.0 fL (80.0-100.0); Nucleated Red Blood Cells % 0.1 %
--- NOTE | 2024-11-23 09:49 | DVHPNRES ---
Progress Note Date Seen: Nov 23, 2024 Resident Creating Document: JUAN MYERS RESIDENT Has the PT tested + for MRSA If YES, has PT been informed?: No Medical Necessity Reason Pt with a Central, PICC or Fol: No Subjective Review of Systems Patient is a 48-year-old female with prior medical history of type 2 diabetes mellitus, chronic kidney disease, peripheral neuropathy, depression, and asthma who presented to the ED with chief complaint of bilateral foot pain. At the time patient stated that a week prior she had been at [facility] for foot ulcer debridement. Patient stated that since discharge from previous institution for pain has worsened, specifically on the right foot. She denied fever, nausea, chills, palpitations, and chest pain. Additionally she is currently not in control of her as she does not regularly check her blood glucose levels nor does she have treatment. On evaluation, she was found in mild distress with bilateral foot wounds. Labs significant for hemoglobin 10.3, creatinine 1.40, BUN 41, and serum glucose of 437. Right foot X-ray was suggestive of possible osteomyelitis. She was admitted for further osteomyelitis workup, antibiotic treatment, and management of glucose. Patient seen at bedside, appears comfortable, Alert x3. she complains of mild foot pain. There was no overnight events. Patient is currently waiting for Recuperative care placement for continuous IV antibiotics. Objective vital signs Vital Sign Date Time Temp Pulse Resp B/P (MAP) Pulse Ox O2 Delivery O2 Flow Rate FiO2 11/23/24 05:00 98.0 77 17 126/72 (90) 98 98.0 11/22/24 20:00 Room Air* 0 21 Total Intake and Output 11/22/24 11/22/24 11/23/24 15:00 23:00 07:00 Intake Total 50 ml 250 ml 660 ml Balance 50 ml 250 ml 660 ml medications Current Medications Medications Dose Ordered Sig/Edmundo Route Start Time Stop Time Status Last Admin Dose Admin Vancomycin HCl 0 ml @ 0 mls/hr UD IV 11/17/24 18:15 Cancel Vancomycin HCl 0 ml @ 0 mls/hr UD IV 11/17/24 19:30 Acetaminophen/ Hydrocodone Bitart 1 tab Q4HP PRN PO 11/17/24 19:30 11/21/24 23:30 1 TAB Ondansetron HCl 4 mg Q4HP PRN IV 11/17/24 19:30 Acetaminophen 650 mg Q6HP PRN PO 11/17/24 19:30 Insulin Human Lispro AC SC 11/18/24 11:30 Hold 11/22/24 06:43 1 UNITS Sodium Chloride 10 ml QSHIFT@10,22 IV 11/21/24 22:00 11/22/24 22:02 10 ML Vancomycin HCl 250 ml @ 200 mls/hr Q16H IV 11/21/24 23:00 11/23/24 06:09 200 MLS/HR Insulin Glargine 20 units DAILY@1000 SC 11/22/24 07:00 11/22/24 10:11 20 UNITS Diagnostic Test (Pha) 1 strip ACHS 11/22/24 07:00 11/23/24 06:09 1 STRIP Dextrose 50 ml UD PRN IV 11/22/24 07:00 Insulin Human Lispro 5 units AC SC 11/22/24 08:00 11/23/24 06:10 5 UNITS Cefepime HCl 50 ml @ 12.5 mls/hr Q12HR IV 11/22/24 22:00 11/22/24 22:02 12.5 MLS/HR Examination General: Patient alert and oriented in person, place and time. Patient following commands. HEENT: Normocephalic, atraumatic, moist mucous membranes Respiratory/pulmonary: Clear lungs bilaterally, vesicular murmurs present in almost all lung garcia, no associated crackles or wheezes. Cardiovascular: Normal heart sounds S1 and S2 with no associated murmurs Abdomen: Abdomen nondistended, there is no pain to palpation in any of the abdominal quadrants, no palpable masses. Extremities: There is no peripheral edema present at the lower extremities. Surgical debridment done on both feet with dressings on both feet. Peripheral Pulses: 3+ Radial (R). 3+ Radial (L). 3+ Dorsalis pedis (R). 3+ Dorsalis pedis(L) Skin: No rashes or pruritus, there is no sacral edema present at this time. Neurological: Intact cranial nerves with no focal neurologic deficits laboratory and microbiology Laboratory Tests 11/23/24 06:31 11/22/24 05:46 Test 11/22/24 05:46 Range/Units Serum Glucose 206 H 74-106 mg/dL Microbiology Date/Time Source Procedure Growth Status 11/19/24 14:42 Foot Right Gram Stain - Final Resulted 11/19/24 14:42 Foot Right Anaerobic Culture - Preliminary Resulted 11/19/24 14:42 Aerobic Culture - Final Staphylococcus aureus Enterococcus faecalis Presumptive Trinity albicans Resulted Problem List/Assessment/Plan Problem List/Assessment/Plan Right Foot osteomyelitis right foot diabetic ulcer Right foot cellulitis plan: pt underwent Right foot I&D to bone and Right foot 3rd metatarsal bone biopsy Iv vancomycin IV zosyn is changed to IV Cefepime Hydrocodone PICC line placed for continuous IV antibiotics Social service consulted for recuperative care Left Foot cellulites: plan:continue IV antibiotics Uncontrolled diabetes mellitus plan : continue insulin sliding scale and Lantus plus lispro bolus educated diabetic diet Hba1c >14 Chronic Kidney disease plan: Avoid nephrotoxic medication monitor kidney function Plan disscused with patient for 17 min: Full code plan discussed with patient, and nurse case discussed with Dr. Rausch. Plan discussed with: Patient Dietary Evaluation Review Comments: 1) Clint 1 pk BID 2) Refer Rod Cup Filler for diabetes education 3) Monitor lab values, skin trend, wt trend Expected Outcomes/Goals: wound to improve FU 3-5 days Date of Service: Nov 23, 2024 Billing Provider: WALESKA RAUSCH MD Common Visit Codes: [id number] INP/OBS CARE(HIGH) JUAN MYERS RESIDENT Nov 23, 2024 09:49 WALESKA RAUSCH MD Nov 23, 2024 21:16
[2024-11-23] MEDS ORDERED: VANCOMYCIN 1GM/200ML PM 200 ML IV SCH (15:00)
[2024-11-23] MEDS: VANCOMYCIN 1GM/200ML PM 200 ML IV SCH (21:28)
[2024-11-24] VITALS (7 sets, daily range): BP systolic 96–121; BP diastolic 56–71; PULSE 61–100; RESP 16–18; TEMP 97.2–98.6; O2SAT 97–100
[2024-11-24 06:09] LABS: Hematocrit 32.4 % (36.0-46.0); Hemoglobin 10.6 g/dL (12.2-16.2); Mean Corpuscular Hemoglobin 27.8 pg (28.0-32.0); Mean Corpuscular Volume 85.1 fL (80.0-100.0); Nucleated Red Blood Cells % 0.1 %
[2024-11-24] MEDS: ONDANSETRON HCL 4 MG/2 ML VIAL IV PRN (10:32)
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
--- NOTE | 2024-11-24 15:52 | MEDREC ---
[facility] ASP Intervention Section I [facility] ASP Intervention: Deescalate AB based on CS (PLEASE CONSIDER DE-ESCALATION OR DISCONTINUATION OF CEFEPIME BASED ON CULTURE RESULTS) BRONWYN SIMPSON PHARMACIST Nov 24, 2024 15:52
--- NOTE | 2024-11-24 16:53 | DVHPNRES ---
Progress Note Date Seen: Nov 24, 2024 Resident Creating Document: JUAN MYERS RESIDENT Has the PT tested + for MRSA If YES, has PT been informed?: No Medical Necessity Reason Pt with a Central, PICC or Fol: No Subjective Review of Systems Patient is a 48-year-old female with prior medical history of type 2 diabetes mellitus, chronic kidney disease, peripheral neuropathy, depression, and asthma who presented to the ED with chief complaint of bilateral foot pain. At the time patient stated that a week prior she had been at [facility] for foot ulcer debridement. Patient stated that since discharge from previous institution for pain has worsened, specifically on the right foot. She denied fever, nausea, chills, palpitations, and chest pain. Additionally she is currently not in control of her as she does not regularly check her blood glucose levels nor does she have treatment. On evaluation, she was found in mild distress with bilateral foot wounds. Labs significant for hemoglobin 10.3, creatinine 1.40, BUN 41, and serum glucose of 437. Right foot X-ray was suggestive of possible osteomyelitis. She was admitted for further osteomyelitis workup, antibiotic treatment, and management of glucose. Patient seen at bedside. She appears confortable, Alert *3, and still complains of mild foot pain. Denies any fever chills nausea vomiting headache There were no overnight events. Patient is currently still waiting for SNF placement for continuous IV antibiotics for 6 weeks. Objective vital signs Vital Sign Date Time Temp Pulse Resp B/P (MAP) Pulse Ox O2 Delivery O2 Flow Rate FiO2 11/24/24 13:00 98.6 68 16 97/61 (73) 99 98.6 11/24/24 08:00 Room Air* 0 21 Total Intake and Output 11/23/24 11/23/24 11/24/24 15:00 23:00 07:00 Intake Total 50 ml 720 ml 1250 ml Balance 50 ml 720 ml 1250 ml medications Current Medications Medications Dose Ordered Sig/Edmundo Route Start Time Stop Time Status Last Admin Dose Admin Vancomycin HCl 0 ml @ 0 mls/hr UD IV 11/17/24 18:15 Cancel Vancomycin HCl 0 ml @ 0 mls/hr UD IV 11/17/24 19:30 Acetaminophen/ Hydrocodone Bitart 1 tab Q4HP PRN PO 11/17/24 19:30 11/24/24 14:44 1 TAB Ondansetron HCl 4 mg Q4HP PRN IV 11/17/24 19:30 11/24/24 10:32 4 MG Acetaminophen 650 mg Q6HP PRN PO 11/17/24 19:30 Insulin Human Lispro AC SC 11/18/24 11:30 Hold 11/22/24 06:43 1 UNITS Sodium Chloride 10 ml QSHIFT@10,22 IV 11/21/24 22:00 11/24/24 10:47 10 ML Insulin Glargine 20 units DAILY@1000 SC 11/22/24 07:00 11/24/24 10:45 20 UNITS Diagnostic Test (Pha) 1 strip ACHS 11/22/24 07:00 11/24/24 11:33 1 STRIP Dextrose 50 ml UD PRN IV 11/22/24 07:00 Insulin Human Lispro 5 units AC SC 11/22/24 08:00 11/24/24 11:32 5 UNITS Cefepime HCl 50 ml @ 12.5 mls/hr Q12HR IV 11/22/24 22:00 11/24/24 10:32 12.5 MLS/HR Vancomycin HCl 200 ml @ 160 mls/hr Q16H IV 11/23/24 22:00 11/24/24 15:03 160 MLS/HR laboratory and microbiology Laboratory Tests 11/24/24 05:16 11/22/24 05:46 Test 11/22/24 05:46 Range/Units Serum Glucose 206 H 74-106 mg/dL Microbiology Date/Time Source Procedure Growth Status 11/19/24 14:42 Foot Right Gram Stain - Final Resulted 11/19/24 14:42 Foot Right Anaerobic Culture - Preliminary Resulted 11/19/24 14:42 Aerobic Culture - Final Staphylococcus aureus Enterococcus faecalis Presumptive Trinity albicans Resulted Problem List/Assessment/Plan Problem List/Assessment/Plan Right Foot osteomyelitis right foot diabetic ulcer Right foot cellulitis plan: pt underwent Right foot I&D to bone and Right foot 3rd metatarsal bone biopsy Iv vancomycin IV zosyn is changed to IV Cefepime Hydrocodone PICC line placed for continuous IV antibiotics Social service consulted for SNF placement Left Foot cellulites: plan:continue IV antibiotics Uncontrolled diabetes mellitus plan : continue insulin sliding scale and Lantus plus lispro bolus educated diabetic diet Hba1c >14 Chronic Kidney disease plan: Avoid nephrotoxic medication monitor kidney function Plan disscused with patient for 16 min: Full code plan discussed with patient, and nurse case discussed with Dr. Rausch. Plan discussed with: Patient Dietary Evaluation Review Comments: 1) Clint 1 pk BID 2) Refer Lieutenant [employer]istics for diabetes education 3) Monitor lab values, skin trend, wt trend Expected Outcomes/Goals: wound to improve FU 3-5 days Date of Service: Nov 24, 2024 Billing Provider: WALESKA RAUSCH MD Common Visit Codes: [id number] INP/OBS CARE(HIGH) JUAN MYERS RESIDENT Nov 24, 2024 16:53 WALESKA RAUSCH MD Nov 25, 2024 20:23
[2024-11-25] VITALS (9 sets, daily range): BP systolic 91–123; BP diastolic 52–75; PULSE 71–84; RESP 16–18; TEMP 98–98.9; O2SAT 97–100
--- NOTE | 2024-11-25 16:29 | DVHPNRES ---
Progress Note Date Seen: Nov 25, 2024 Resident Creating Document: JUAN MYERS RESIDENT Has the PT tested + for MRSA If YES, has PT been informed?: No Medical Necessity Reason Pt with a Central, PICC or Fol: No Subjective Review of Systems Patient is a 48-year-old female with prior medical history of type 2 diabetes mellitus, chronic kidney disease, peripheral neuropathy, depression, and asthma who presented to the ED with chief complaint of bilateral foot pain. At the time patient stated that a week prior she had been at [facility] for foot ulcer debridement. Patient stated that since discharge from previous institution for pain has worsened, specifically on the right foot. She denied fever, nausea, chills, palpitations, and chest pain. Additionally she is currently not in control of her as she does not regularly check her blood glucose levels nor does she have treatment. Patient seen at bedside. Patient appears Comfortable, alertx3. She is eating, sleeping well, and ambulating. No overnight complaints. Patient is waiting for SNF placement for IV antibiotics for 6 weeks. Objective vital signs Vital Sign Date Time Temp Pulse Resp B/P (MAP) Pulse Ox O2 Delivery O2 Flow Rate FiO2 11/25/24 13:10 98.9 71 17 113/66 (82) 99 98.9 11/24/24 20:00 Room Air* 0 21 Total Intake and Output 11/24/24 11/24/24 11/25/24 15:00 23:00 07:00 Intake Total 1720 ml 800 ml Balance 1720 ml 800 ml medications Current Medications Medications Dose Ordered Sig/Edmundo Route Start Time Stop Time Status Last Admin Dose Admin Vancomycin HCl 0 ml @ 0 mls/hr UD IV 11/17/24 18:15 Cancel Vancomycin HCl 0 ml @ 0 mls/hr UD IV 11/17/24 19:30 Acetaminophen/ Hydrocodone Bitart 1 tab Q4HP PRN PO 11/17/24 19:30 11/25/24 09:56 1 TAB Ondansetron HCl 4 mg Q4HP PRN IV 11/17/24 19:30 11/24/24 10:32 4 MG Acetaminophen 650 mg Q6HP PRN PO 11/17/24 19:30 Insulin Human Lispro AC SC 11/18/24 11:30 Hold 11/22/24 06:43 1 UNITS Sodium Chloride 10 ml QSHIFT@10,22 IV 11/21/24 22:00 7/8/25 10:10 10 ML Insulin Glargine 20 units DAILY@1000 SC 11/22/24 07:00 11/25/24 10:02 20 UNITS Diagnostic Test (Pha) 1 strip ACHS 11/22/24 07:00 11/25/24 11:30 1 STRIP Dextrose 50 ml UD PRN IV 11/22/24 07:00 Insulin Human Lispro 5 units AC SC 11/22/24 08:00 11/25/24 11:30 5 UNITS Cefepime HCl 50 ml @ 12.5 mls/hr Q12HR IV 11/22/24 22:00 11/25/24 09:55 12.5 MLS/HR Vancomycin HCl 200 ml @ 160 mls/hr Q16H IV 11/25/24 22:00 Examination General: Patient alert and oriented in person, place and time. Patient following commands. HEENT: Normocephalic, atraumatic, moist mucous membranes Respiratory/pulmonary: Clear lungs bilaterally, vesicular murmurs present in almost all lung garcia, no associated crackles or wheezes. Cardiovascular: Normal heart sounds S1 and S2 with no associated murmurs Abdomen: Abdomen nondistended, there is no pain to palpation in any of the abdominal quadrants, no palpable masses. Extremities: There is no peripheral edema present at the lower extremities. Surgical debridment done on both feet with dressings. Peripheral Pulses: 3+ Radial (R). 3+ Radial (L). 3+ Dorsalis pedis (R). 3+ Dorsalis pedis(L) Skin: No rashes or pruritus, there is no sacral edema present at this time. Neurological: Intact cranial nerves with no focal neurologic deficits laboratory and microbiology Laboratory Tests 11/25/24 04:52 11/24/24 05:16 11/22/24 05:46 Test 11/22/24 05:46 Range/Units Serum Glucose 206 H 74-106 mg/dL Microbiology Date/Time Source Procedure Growth Status 11/19/24 14:42 Foot Right Gram Stain - Final Complete 11/19/24 14:42 Foot Right Anaerobic Culture - Final Complete 11/19/24 14:42 Aerobic Culture - Final Staphylococcus aureus Enterococcus faecalis Presumptive Trinity albicans Complete Problem List/Assessment/Plan Problem List/Assessment/Plan Right Foot osteomyelitis right foot diabetic ulcer Right foot cellulitis plan: pt underwent Right foot I&D to bone and Right foot 3rd metatarsal bone biopsy Iv vancomycin IV zosyn is changed to IV Cefepime Hydrocodone PICC line placed for continuous IV antibiotics Social service consulted for SNF placement Left Foot cellulites: plan:continue IV antibiotics Uncontrolled diabetes mellitus plan : continue insulin sliding scale and Lantus plus lispro bolus educated diabetic diet Hba1c >14 Chronic Kidney disease plan: Avoid nephrotoxic medication monitor kidney function Plan disscused with patient for 19 min: Full code plan discussed with patient, and nurse case discussed with Dr. Rausch. Plan discussed with: Patient Dietary Evaluation Review Comments: 1) Clint 1 pk BID 2) Refer [employer] for diabetes education 3) Monitor lab values, skin trend, wt trend Expected Outcomes/Goals: wound to improve FU 3-5 days Date of Service: Nov 25, 2024 Billing Provider: WALESKA RAUSCH MD Common Visit Codes: [id number] INP/OBS CARE(HIGH) JUAN MYERS RESIDENT Nov 25, 2024 16:29 WALESKA RAUSCH MD Nov 25, 2024 20:31
[2024-11-25] MEDS: VANCOMYCIN 1GM/200ML PM 200 ML IV SCH (21:57)
[2024-11-26] VITALS (8 sets, daily range): BP systolic 101–147; BP diastolic 56–72; PULSE 62–80; RESP 16–19; TEMP 96.9–98.9; O2SAT 95–100
[2024-11-26] MEDS ORDERED: LINE1TAB6 PO (15:57)
[2024-11-26] MEDS ORDERED: INSUINJ37 SC (15:57)
[2024-11-26] MEDS ORDERED: BLOO1KIT60 XX (15:57)
[2024-11-26] MEDS ORDERED: INSU100I4 SC (15:57)
[2024-11-26] MEDS ORDERED: LANC-347 XX (15:59)
--- NOTE | 2024-11-26 17:39 | DVHDSRES ---
Discharge Summary Date of Admission Resident Creating Document: JUAN MYERS RESIDENT Nov 17, 2024 at 19:24 Date of Discharge: Nov 26, 2024 Admitting Diagnosis Right foot osteomyelitis Labs/Diagnostic Data: Laboratory Results Test 11/26/24 17:14 11/26/24 11:00 11/25/24 04:52 11/24/24 05:16 POC Glucose 155 mg/dl (70-106) Creatinine 1.38 mg/dL (0.550-1.02) Glomerular Filtration Rate Calc 48 mL/min (>90) Vancomycin Level Trough 12.8 ug/mL (5-10) White Blood Count 6.9 10^3/uL (4.4-10.8) Red Blood Count 3.80 10^6/uL (4.0-5.20) Hemoglobin 10.6 g/dL (12.2-16.2) Hematocrit 32.4 % (36.0-46.0) Mean Corpuscular Volume 85.1 fL (80.0-100.0) Mean Corpuscular Hemoglobin 27.8 pg (28.0-32.0) Mean Corpuscular Hemoglobin Concent 32.7 g/dL (32.0-36.0) Red Cell Distribution Width 14.2 % (11.8-14.3) Platelet Count 370 10^3/uL (140-450) Mean Platelet Volume 7.2 fL (6.9-10.8) Neutrophils (%) (Auto) 31.2 % (37.0-80.0) Lymphocytes (%) (Auto) 53.1 % (10.0-50.0) Monocytes (%) (Auto) 12.0 % (0.0-12.0) Eosinophils (%) (Auto) 3.2 % (0.0-7.0) Basophils (%) (Auto) 0.5 % (0.0-2.0) Neutrophils # (Auto) 2.2 10 ^3/uL (1.6-8.6) Lymphocytes # (Auto) 3.7 10 ^3/uL (0.4-5.4) Monocytes # (Auto) 0.8 10 ^3/uL (0-1.3) Eosinophils # (Auto) 0.2 10 ^3/uL (0-0.8) Basophils # (Auto) 0 10 ^3/uL (0-0.2) Nucleated Red Blood Cells 0.1 % Test 11/22/24 05:46 11/19/24 05:03 11/18/24 23:30 11/18/24 05:42 Sodium Level 136 mmol/L (136-145) Potassium Level 4.6 mmol/L (3.5-5.1) Chloride Level 104 mmol/L (98-107) Carbon Dioxide Level 23 mmol/L (20-31) Anion Gap 9 (5-15) Blood Urea Nitrogen 41 mg/dL (9-23) BUN/Creatinine Ratio 31.3 (10.0-20.0) Serum Glucose 206 mg/dL (74-106) Calcium Level 9.2 mg/dL (8.7-10.4) Prothrombin Time 10.6 sec (9.3-11.8) Prothrombin Time INR 1.00 (0.9-1.15) Activated Partial Thromboplast Time 24.5 SEC (24.5-34.5) Beta HCG, Quantitative 0.8 mIU/mL (1.5-4.2) Urine Color Light-yellow (Yellow) Urine Clarity Clear (Clear) Urine pH 7.0 (5.0-9.0) Urine Specific [place] 1.016 (1.001-1.035) Urine Protein Trace (Negative) Urine Ketones Negative (Negative) Urine Blood Negative /uL (Negative) Urine Nitrite Negative (Negative) Urine Bilirubin Negative (Negative) Urine Urobilinogen Normal mg/dL (Negative) Urine Leukocyte Esterase Trace /uL (Negative) Urine RBC 4 /hpf (0 - 4) Urine Microscopic WBC 2 /HPF (0-5) Urine Squamous Epithelial Cells Few /hpf (<5) Urine Bacteria None seen /hpf (None Seen) Urine Hyaline Casts Few /lpf (0 - 2) Urine Glucose 3+ mg/dL (Normal) Urine Opiates Screen Neg (NEGATIVE) Urine Fentanyl Screen Neg (NEGATIVE) Urine Barbiturates Screen Neg (NEGATIVE) Urine Phencyclidine Screen Neg (NEGATIVE) Urine Amphetamines Screen Neg (NEGATIVE) Urine Benzodiazepines Screen Neg (NEGATIVE) Urine Cocaine Screen Neg (NEGATIVE) Urine Cannabinoids Screen Neg (NEGATIVE) Random Vancomycin Level 12.3 ug/mL (5-10) Test 11/17/24 16:28 Hemoglobin A1c > 14.0 % A1C (<5.7) Other Laboratory Tests 11/26/24 11:00 11/24/24 05:16 11/22/24 05:46 Brief Hx & Hospital Course: Patient is a 48-year-old female with prior medical history of type 2 diabetes mellitus, chronic kidney disease, peripheral neuropathy, depression, and asthma who presented to the ED with chief complaint of bilateral foot pain. At the time patient stated that a week prior she had been at [facility] for foot ulcer debridement. Patient stated that since discharge from previous institution for pain has worsened, specifically on the right foot. She denied fever, nausea, chills, palpitations, and chest pain. Additionally she is currently not in control of her as she does not regularly check her blood glucose levels nor does she have treatment. On evaluation, she was found in mild distress with bilateral foot wounds. She was admitted for further osteomyelitis workup, antibiotic treatment, and management of glucose. Rt foot MRI showed Osteomyelitis in the 3rd metatarsal bone, and the 3rd proximal and middle phalanx., Plantar ulceration and soft tissue defect deep to the 3rd toe with edema and emphysema suggesting soft tissue infection and Edema in the intrinsic muscles of the foot may reflect denervation edema or myositis. Left foot MRI No evidence of osteomyelitis in the left foot. patient was on vancomycin, cefepime and given insulin pain and symptomatic management as needed. Podiatric consult that evaluated the patient and performed Right foot I&D to bone and Right foot 3rd metatarsal bone biopsy. the culture showed the culture showed staph aureus, Enterococcus faecalis, and possible Trinity. Patient was started on IV vancomycin and cefepime in hospital. Patient's condition improved and is stable for discharge and is discharged with p.o. linezolid 600 mg tablet b.i.d. for 34 days, and insulin glargine,lispro. Patient communicates understanding that she has to take oral medication continuously. General: Patient alert and oriented in person, place and time. Patient following commands. HEENT: Normocephalic, atraumatic, moist mucous membranes Respiratory/pulmonary: Clear lungs bilaterally, vesicular murmurs present in almost all lung garcia, no associated crackles or wheezes. Cardiovascular: Normal heart sounds S1 and S2 with no associated murmurs Abdomen: Abdomen nondistended, there is no pain to palpation in any of the abdominal quadrants, no palpable masses. Extremities: There is no peripheral edema present at the lower extremities. Surgical debridment done on both feet with dressings. Peripheral Pulses: 3+ Radial (R). 3+ Radial (L). 3+ Dorsalis pedis (R). 3+ Dorsalis pedis(L) Skin: No rashes or pruritus, there is no sacral edema present at this time. Neurological: Intact cranial nerves with no focal neurologic deficits Operations or Procedures Operative Report - 2 Report Details Date: 11/19/24 Preop Diagnosis: 1. Right foot osteomyelitis 2. Right foot abscess 3. Right foot cellulitis 4. Right foot diabetic ulcer to bone Postop Diagnosis: Same as preop Surgeon: Uri Magallon MD Anesthesiologist: See anesthesia Anesthesia: Mac Consent: The patient was informed of the risks and benefits of the procedure. These include but are not limited to complications of anesthesia, postoperative infection, incomplete relief of symptoms, recurrence of symptoms, damage to blood vessels, nerves and tendons, deep venous thrombosis, pulmonary embolism and possible need for repeat surgery in the future. Complications: None Estimated Blood Loss: Minimal Fluids: See anesthesia Findings: Consistent with the diagnosis Indications for Surgery: Worsening right foot wound Name of Procedure Performed 1. Right foot I&D to bone ([id number]) 2. Right foot 3rd metatarsal bone biopsy () Procedure Details Procedure Details: PRE-PROCEDURE INFORMATION: In the pre-op holding area, the extremity to be operated on was clearly marked and the patient verified correct laterality of the marking. The patient was transferred to the OR table and placed in a supine position. A timeout was performed in which identification of the correct patient, procedure, location, and materials was done. The right foot and leg were prepped and draped in normal sterile fashion. DESCRIPTION OF PROCEDURE: Attention was directed to the right where area of fluctuance was noted. An incision was made over this area and was deepened through blunt dissection. The incision was deepened to the level of abscess and bone. Care was taken to the dissection to avoid any neurovascular and tendinous structures. The incision was deepened to the bone, and the abscess appeared to be purulent fluid consistent with pus. The cortices of the bone was then removed with rongeur an all necrotic tissue. After the abscess was drained, the area was irrigated with 3 L normal saline using cysto tubing. Deep cultures were then obtained from the wound. The area was then inspected and any areas of tracking, especially along the tendons were also drained. A bone biopsy was then taken of the 3rd metatarsal which was deepened to the muscle belly and tendons. The bone was then sent to pathology to determine the extent of osteomyelitis. The wound was packed with Betadine-soaked gauze and we will need to be closed at a later date. POSTOPERATIVE INFORMATION: The patient tolerated the above noted procedure and anesthesia well and was transferred to the PACU with vital signs stable, and vascular status intact with capillary refill intact to all digits. Deep cultures were taken and bone biopsy was sent off. Patient will need 6 weeks IV antibiotics. Specimen: Right 3rd metatarsal Condition Good ORDERING PHYSICIAN: URI MAGALLON DPM PROCEDURE(s): RFTMR - MRI R FOOT WO CONTRAST REASON: r/o OM ORDER NUMBER(s): [id number], ACCESSION NUMBER(s): [id number] CLINICAL INDICATION: r/o OM COMPARISON: Radiographs of the right foot performed on 11/17/2024. TECHNIQUE: Multiplanar, multisequence MRI of the right foot was performed without intravenous contrast. Contrast: None. INTERPRETATION: Bones: T1 hypointensity in the 3rd metatarsal head and T1 hypointensity in the Entire visualized 3rd proximal and middle phalanx. There is corresponding edema in the bones, consistent with osteomyelitis. Chronic appearing deformities of the distal 4th and 5th metatarsal bones. Joints: There is 3rd metatarsophalangeal joint effusion. Hammertoe deformities noted. Soft tissues: Large skin defect and ulceration in the plantar surface of the surgical subcutaneous edema and emphysema noted. No retracted tendon or ligament injury. Edema in the intrinsic muscles of the foot may reflect denervation edema or myositis. IMPRESSION: 1. Osteomyelitis in the 3rd metatarsal bone, and the 3rd proximal and middle phalanx. 2. Plantar ulceration and soft tissue defect deep to the 3rd toe with edema and emphysema suggesting soft tissue infection. 3. Edema in the intrinsic muscles of the foot may reflect denervation edema or myositis. RING PHYSICIAN: URI MAGALLON DPM PROCEDURE(s): LFTMR - MRI L FOOT WO CONTRAST REASON: r/o OM ORDER NUMBER(s): [id number], ACCESSION NUMBER(s): [id number] CLINICAL INDICATION: r/o OM COMPARISON: Radiograph of the left foot dated 11/17/2024. TECHNIQUE: Multiplanar, multisequence MRI of the left foot was performed without intravenous contrast. Contrast: None. INTERPRETATION: Bones: No evidence of acute fracture. There is no marrow replacing lesion. Soft tissues: The Lisfranc ligament is intact. The medial and lateral collateral ligaments are intact at the metatarsophalangeal joints. The flexor and extensor tendons are intact. There is no plantar plate tear. There is no soft tissue mass or fluid collection. Soft tissue swelling of the dorsal forefoot. There is edema within the intrinsic muscles of the foot. Heel spur noted. IMPRESSION: 1. No evidence of osteomyelitis in the left foot. 2. Subcutaneous edema, nonspecific but may reflect cellulitis in the appropriate clinical setting. Condition at Discharge: Stable Final Diagnosis/Problems List Right Foot osteomyelitis right foot diabetic ulcer Right foot cellulits Left Foot cellulites Uncontrolled diabetes mellitus Chronic Kidney disease Discharge Disposition: Home Discharge Instruct/Medications Diet: Consistent carbohydrate, Cardiac 2g Na,low cholest Activity: No Restrictions, As Tolerated Follow Up/Referral: Follow up with discharge clinic in 1 week Medications: As per EMR Scheduled Insulin Glargine (Lantus Solostar), 20 UNIT SC QPM Insulin Lispro (Humalog Kwikpen), 5 UNIT SC TID Linezolid (Zyvox), 600 MG PO BID Discontinued Medications Nitrofurantoin Monohydrate Mac (Macrobid), 1 TAB PO BID Phenazopyridine HCl (Phenazopyridine Hydrochlo), 1 TAB PO TID Durable Medical Equipment Blood Glucose Monitoring Suppl (D-Care Glucometer Kit/Glu W/Device), KIT XX TID, (DME) Lancets (Freestyle Lancets), AC XX TID, (DME) Discharge Statement: "Patient was advised to return to the ER or call 911 if any headaches, dizziness, shortness of breath, chest pain, abdominal pain, bleeding, fevers, or worsening of medical condition. Patient was counseled about treatment plan, medications, possible side effects, patientverbalized understanding. All questions were answered to the best of my ability. This discharge took greater then 30 minutes in planning, reviewing documentation, counseling the patient, and discussing with other team members." ASSESSMENT ASSESSMENT Assessment Right Foot osteomyelitis right foot diabetic ulcer Right foot cellulits Left Foot cellulites Uncontrolled diabetes mellitus Chronic Kidney disease Date of Service: Nov 26, 2024 Billing Provider: WALESKA RAUSCH MD Common Visit Codes: 26222-DLZ/OBS DISCH DAY >30min JUAN MYERS RESIDENT Nov 26, 2024 17:39 WALESKA RAUSCH MD Dec 02, 2024 16:15
[2024-11-27 01:00] VITALS: BP 107/65; PULSE 74; RESP 16; TEMP 97.9; O2SAT 98
[2024-11-27 05:00] VITALS: BP 129/74; PULSE 69; RESP 16; TEMP 97.6; O2SAT 100
[2024-11-27 08:30] VITALS: BP 146/80; PULSE 70; RESP 19; TEMP 98.4; O2SAT 98
[2024-11-27 12:30] VITALS: BP 117/68; PULSE 71; RESP 20; TEMP 97.7; O2SAT 100
[2024-11-27 17:00] VITALS: BP 112/74; PULSE 69; RESP 18; TEMP 98.5; O2SAT 100
--- NOTE | 2024-11-27 17:49 | DVHPNRES ---
Progress Note Date Seen: Nov 27, 2024 Resident Creating Document: JUAN MYERS RESIDENT Has the PT tested + for MRSA If YES, has PT been informed?: No Medical Necessity Reason Pt with a Central, PICC or Fol: No Subjective Review of Systems Patient is a 48-year-old female with prior medical history of type 2 diabetes mellitus, chronic kidney disease, peripheral neuropathy, depression, and asthma who presented to the ED with chief complaint of bilateral foot pain. At the time patient stated that a week prior she had been at [facility] for foot ulcer debridement. Patient stated that since discharge from previous institution for pain has worsened, specifically on the right foot. She denied fever, nausea, chills, palpitations, and chest pain. Additionally she is currently not in control of her as she does not regularly check her blood glucose levels nor does she have treatment. Patient seen at bedside. Patient appears Comfortable, alertx3. She is eating, sleeping well, and ambulating. No overnight complaints. Patient is waiting for SNF placement for IV antibiotics for 6 weeks. Objective vital signs Vital Sign Date Time Temp Pulse Resp B/P (MAP) Pulse Ox O2 Delivery O2 Flow Rate FiO2 11/27/24 17:00 98.5 69 18 112/74 (87) 100 98.5 11/27/24 08:00 Room Air* 0 21 Total Intake and Output 11/26/24 11/26/24 11/27/24 15:00 23:00 07:00 Intake Total 50 ml 2650 ml 1100 ml Balance 50 ml 2650 ml 1100 ml medications Current Medications Medications Dose Ordered Sig/Edmundo Route Start Time Stop Time Status Last Admin Dose Admin Vancomycin HCl 0 ml @ 0 mls/hr UD IV 11/17/24 18:15 Cancel Vancomycin HCl 0 ml @ 0 mls/hr UD IV 11/17/24 19:30 Ondansetron HCl 4 mg Q4HP PRN IV 11/17/24 19:30 11/24/24 10:32 4 MG Acetaminophen 650 mg Q6HP PRN PO 11/17/24 19:30 Insulin Human Lispro AC SC 11/18/24 11:30 Hold 11/22/24 06:43 1 UNITS Sodium Chloride 10 ml QSHIFT@10,22 IV 11/21/24 22:00 11/27/24 10:03 10 ML Insulin Glargine 20 units DAILY@1000 SC 11/22/24 07:00 11/27/24 10:33 20 UNITS Diagnostic Test (Pha) 1 strip ACHS 11/22/24 07:00 11/27/24 11:42 1 STRIP Dextrose 50 ml UD PRN IV 11/22/24 07:00 Insulin Human Lispro 5 units AC SC 11/22/24 08:00 11/27/24 11:48 5 UNITS Cefepime HCl 50 ml @ 12.5 mls/hr Q12HR IV 11/22/24 22:00 11/27/24 10:03 12.5 MLS/HR Vancomycin HCl 200 ml @ 160 mls/hr Q12H IV 11/27/24 18:00 Examination General: Patient alert and oriented in person, place and time. Patient following commands. HEENT: Normocephalic, atraumatic, moist mucous membranes Respiratory/pulmonary: Clear lungs bilaterally, vesicular murmurs present in almost all lung garcia, no associated crackles or wheezes. Cardiovascular: Normal heart sounds S1 and S2 with no associated murmurs Abdomen: Abdomen nondistended, there is no pain to palpation in any of the abdominal quadrants, no palpable masses. Extremities: There is no peripheral edema present at the lower extremities. Bilateral foot debridment with dressings Peripheral Pulses: 3+ Radial (R). 3+ Radial (L). 3+ Dorsalis pedis (R). 3+ Dorsalis pedis(L) Skin: No rashes or pruritus, there is no sacral edema present at this time. Neurological: Intact cranial nerves with no focal neurologic deficits laboratory and microbiology Laboratory Tests 11/27/24 04:53 11/24/24 05:16 11/22/24 05:46 Test 11/22/24 05:46 Range/Units Serum Glucose 206 H 74-106 mg/dL Microbiology Date/Time Source Procedure Growth Status 11/19/24 14:42 Foot Right Gram Stain - Final Complete 11/19/24 14:42 Foot Right Anaerobic Culture - Final Complete 11/19/24 14:42 Aerobic Culture - Final Staphylococcus aureus Enterococcus faecalis Presumptive Trinity albicans Complete Labs and/or images reviewed: Labs reviewed by me, Image(s) reviewed by me Problem List/Assessment/Plan Problem List/Assessment/Plan #Right Foot osteomyelitis #right foot diabetic ulcer #Right foot cellulitis plan: pt underwent Right foot I&D to bone and Right foot 3rd metatarsal bone biopsy Iv vancomycin IV zosyn is changed to IV Cefepime Hydrocodone PICC line placed for continuous IV antibiotics Social service consulted for SNF placement #Left Foot cellulites: plan:continue IV antibiotics #Uncontrolled diabetes mellitus plan : continue insulin sliding scale and Lantus plus lispro bolus educated diabetic diet Hba1c >14 #Chronic Kidney disease plan: Avoid nephrotoxic medication monitor kidney function Goals of care discussed with patient for 20 min: Full code Plan discussed with patient, and nurse Case discussed with Dr. Sherwood Plan discussed with: Patient, Other (RN) Dietary Evaluation Review Comments: 1) Clint 1 pk BID 2) Refer [employer] for diabetes education 3) Monitor lab values, skin trend, wt trend Expected Outcomes/Goals: wound to improve FU 3-5 days Addendum Addendum Addendum I was physically present for the herrera portions of the service provided to patient by THE RESIDENT. I have reviewed the documentation, discussed the case with resident and agree with the resident's documentation except as noted. Also the patient's clinical case was discussed with the patient's nurse. This medical document was created using an electronic medical record system with computerized dictation system. Although this document has been carefully reviewed, there might still be some phonetic and typographical errors. These areas are purely typographical due to imperfections of the software programs, and do not reflect any compromise in the patient's medical care. Late signature. Date of Service: Nov 27, 2024 Billing Provider: MARILYN SHERWOOD MD Common Visit Codes: [id number] INP/OBS CARE(HIGH) Secondary Visit Codes: [id number] CARE PLAN 30 MINUTES (20 minutes) JUAN MYERS RESIDENT Nov 27, 2024 17:49 MARILYN SHERWOOD MD Nov 28, 2024 04:21
[2024-11-27] MEDS: VANCOMYCIN 1GM/200ML PM 200 ML IV SCH (18:24)
[2024-11-27 21:00] VITALS: BP 103/68; PULSE 77; RESP 18; TEMP 98.5; O2SAT 100
[2024-11-28 01:00] VITALS: BP 142/81; PULSE 85; RESP 19; TEMP 98.2; O2SAT 98
[2024-11-28 05:00] VITALS: BP 96/57; PULSE 68; RESP 18; TEMP 99.1; O2SAT 97
[2024-11-28 09:00] VITALS: BP 98/59; PULSE 76; RESP 19; TEMP 97.7; O2SAT 99
[2024-11-28 13:00] VITALS: BP 106/67; PULSE 80; RESP 19; TEMP 97.3; O2SAT 98
[2024-11-28 14:51] VITALS: BP 98/59; PULSE 76; RESP 19; TEMP 36.5; O2SAT 99
--- NOTE | 2024-11-28 15:41 | DVHPNRES ---
Progress Note Date Seen: Nov 28, 2024 Resident Creating Document: JUAN MYERS RESIDENT Has the PT tested + for MRSA If YES, has PT been informed?: No Medical Necessity Reason Pt with a Central, PICC or Fol: No Subjective Review of Systems Patient is a 48-year-old female with prior medical history of type 2 diabetes mellitus, chronic kidney disease, peripheral neuropathy, depression, and asthma who presented to the ED with chief complaint of bilateral foot pain. At the time patient stated that a week prior she had been at [facility] for foot ulcer debridement. Patient stated that since discharge from previous institution for pain has worsened, specifically on the right foot. She denied fever, nausea, chills, palpitations, and chest pain. Additionally she is currently not in control of her diabetes and she does not regularly check her blood glucose levels nor does she have treatment. Patient seen at bedside. Patient appears comfortable, alert x3, patient is ambulating, ,eating, sleeping well. She is still waiting for placement by social service. Objective vital signs Vital Sign Date Time Temp Pulse Resp B/P (MAP) Pulse Ox O2 Delivery O2 Flow Rate FiO2 11/28/24 14:51 36.5 76 19 99 11/28/24 09:00 98/59 (72) 11/28/24 08:00 Room Air* 0 21 Total Intake and Output 11/27/24 11/27/24 11/28/24 15:00 23:00 07:00 Intake Total 50 ml 1341 ml 850 ml Output Total 900 ml Balance 50 ml 1341 ml -50 ml medications Current Medications Medications Dose Ordered Sig/Edmundo Route Start Time Stop Time Status Last Admin Dose Admin Vancomycin HCl 0 ml @ 0 mls/hr UD IV 11/17/24 18:15 Cancel Vancomycin HCl 0 ml @ 0 mls/hr UD IV 11/17/24 19:30 Ondansetron HCl 4 mg Q4HP PRN IV 11/17/24 19:30 11/24/24 10:32 4 MG Acetaminophen 650 mg Q6HP PRN PO 11/17/24 19:30 Insulin Human Lispro AC SC 11/18/24 11:30 Hold 11/22/24 06:43 1 UNITS Sodium Chloride 10 ml QSHIFT@10,22 IV 11/21/24 22:00 11/28/24 10:00 10 ML Insulin Glargine 20 units DAILY@1000 SC 11/22/24 07:00 11/28/24 10:00 20 UNITS Diagnostic Test (Pha) 1 strip ACHS 11/22/24 07:00 11/28/24 11:30 1 STRIP Dextrose 50 ml UD PRN IV 11/22/24 07:00 Insulin Human Lispro 5 units AC SC 11/22/24 08:00 11/28/24 11:30 5 UNITS Cefepime HCl 50 ml @ 12.5 mls/hr Q12HR IV 11/22/24 22:00 11/28/24 12:01 12.5 MLS/HR Vancomycin HCl 200 ml @ 160 mls/hr Q12H IV 11/27/24 18:00 11/28/24 06:38 160 MLS/HR Examination General: Patient alert and oriented in person, place and time. Patient following commands. HEENT: Normocephalic, atraumatic, moist mucous membranes Respiratory/pulmonary: Clear lungs bilaterally, vesicular murmurs present in almost all lung garcia, no associated crackles or wheezes. Cardiovascular: Normal heart sounds S1 and S2 with no associated murmurs Abdomen: Abdomen nondistended, there is no pain to palpation in any of the abdominal quadrants, no palpable masses. Extremities: There is no peripheral edema present at the lower extremities. B/l foot ulcers Peripheral Pulses: 3+ Radial (R). 3+ Radial (L). 3+ Dorsalis pedis (R). 3+ Dorsalis pedis(L) Skin: No rashes or pruritus, there is no sacral edema present at this time. Neurological: Intact cranial nerves with no focal neurologic deficits laboratory and microbiology Laboratory Tests 11/28/24 04:24 11/24/24 05:16 11/22/24 05:46 Test 11/22/24 05:46 Range/Units Serum Glucose 206 H 74-106 mg/dL Microbiology Date/Time Source Procedure Growth Status 11/19/24 14:42 Foot Right Gram Stain - Final Complete 11/19/24 14:42 Foot Right Anaerobic Culture - Final Complete 11/19/24 14:42 Aerobic Culture - Final Staphylococcus aureus Enterococcus faecalis Presumptive Trinity albicans Complete Labs and/or images reviewed: Labs reviewed by me, Image(s) reviewed by me Problem List/Assessment/Plan Problem List/Assessment/Plan #Right Foot osteomyelitis #right foot diabetic ulcer #Right foot cellulitis plan: pt underwent Right foot I&D to bone and Right foot 3rd metatarsal bone biopsy Iv vancomycin IV Zosyn is changed to IV Cefepime Hydrocodone PICC line placed for continuous IV antibiotics The patient was discharged on November 28, 2024 #Left Foot cellulites: plan:continue IV antibiotics #Uncontrolled diabetes mellitus plan : continue insulin sliding scale and Lantus plus lispro bolus educated diabetic diet Hba1c >14 #Chronic Kidney disease plan: Avoid nephrotoxic medication monitor kidney function #Polysubstance use disorder -Counseled on tobacco, and marijuana use cessation Discharge summary documented on November 26 [address] Sherwood Plan discussed with: Patient, Other (RN) Dietary Evaluation Review Comments: 1) Clint 1 pk BID 2) Refer [employer] Technician for diabetes education 3) Monitor lab values, skin trend, wt trend Expected Outcomes/Goals: wound to improve FU 3-5 days Addendum Addendum Addendum I was physically present for the herrera portions of the service provided to patient by THE RESIDENT. I have reviewed the documentation, discussed the case with resident and agree with the resident's documentation except as noted. Also the patient's clinical case was discussed with the patient's nurse. This medical document was created using an electronic medical record system with computerized dictation system. Although this document has been carefully reviewed, there might still be some phonetic and typographical errors. These areas are purely typographical due to imperfections of the software programs, and do not reflect any compromise in the patient's medical care. Late signature. Date of Service: Nov 28, 2024 Billing Provider: MARILYN SHERWOOD MD Common Visit Codes: 25465-JJN/OBS DISCH DAY >30min JUAN MYERS RESIDENT Nov 28, 2024 15:41 MARILYN SHERWOOD MD Nov 29, 2024 14:22
== END 2024-11-28 18:23 | disposition home or self-care (01) | DRG 344 ==
LOC: ER 14:31 → OVERFLOW 19:24 → WEST WING 23:46
PROVIDERS: ADMIT Internal Medicine; ATTEND Internal Medicine
PROC: 0Y9M0ZZ Drainage of Right Foot, Open Approach (ICD-10-PCS; 2024-11-19)
PROC: 0QBN0ZX Excision of Right Metatarsal, Open Approach, Diagnostic (ICD-10-PCS; principal; 2024-11-19 14:29)
PROC: 02HV33Z Insertion of Infusion Device into Superior Vena Cava, Percutaneous Approach (ICD-10-PCS; 2024-11-21)
PROC: B548ZZA Ultrasonography of Superior Vena Cava, Guidance (ICD-10-PCS; 2024-11-21)
DX: E11.69 Type 2 diabetes mellitus with other specified complication (principal); M86.8X7 Other osteomyelitis, ankle and foot; N17.0 Acute kidney failure with tubular necrosis; E11.22 Type 2 diabetes mellitus with diabetic chronic kidney disease; L03.115 Cellulitis of right lower limb; E11.621 Type 2 diabetes mellitus with foot ulcer; L97.516 Non-pressure chronic ulcer of other part of right foot with bone involvement without evidence of necrosis; B95.2 Enterococcus as the cause of diseases classified elsewhere; E11.42 Type 2 diabetes mellitus with diabetic polyneuropathy; B95.61 Methicillin susceptible Staphylococcus aureus infection as the cause of diseases classified elsewhere; D64.9 Anemia, unspecified; E11.65 Type 2 diabetes mellitus with hyperglycemia; N18.9 Chronic kidney disease, unspecified; J45.909 Unspecified asthma, uncomplicated; L03.116 Cellulitis of left lower limb; F32.A Depression, unspecified; Z83.3 Family history of diabetes mellitus; Z59.00 Homelessness unspecified; Z23 Encounter for immunization; L02.611 Cutaneous abscess of right foot
CPT/HCPCS: 36415; 36569; 73620; 73718; 76937; 80048; 80202; 80307; 81001; 82565; 82962; 83036; 84702; 85025; 85610; 85730; 86850; 86900; 86901; 87070; 87075; 87077; 87186; 87205; 96365; 99291; G0378; J0692; J1100; J1815; J1885; J2405; J2543; J2704; J3490